=== PATIENT | male | born 1950 | race Caucasian/White ===

== ENCOUNTER 2023-05-07 12:42 | Outpatient (OUT) | payer OTHER, SELFPAY ==
[2023-05-07 14:03] LABS: Anion Gap 11.7; BUN Creatinine Ratio 16.1; Calcium 8.6 mg/dL (8.5-10.1); Carbon Dioxide 27.5 mmol/L (21.0-32.0); Chloride 105 mmol/L (98-107); Estimated GFR (African America >60 (>=60); Estimated GFR (Non-African Ame >60 (>=60); Glucose 104 mg/dL (74-106); Potassium 4.2 mmol/L (3.5-5.1); Sodium 140 mmol/L (136-145)
== END 2023-05-07 12:43 ==
PROVIDERS: PCP Internal Medicine; Visit Provider Nurse Practitioner Family
DX: I10 Essential (primary) hypertension (principal)
CPT/HCPCS: 36415; 80048

== ENCOUNTER 2024-01-29 10:37 | Outpatient (OUT) | payer OTHER, SELFPAY ==
--- NOTE | 2024-01-29 10:40 | US_ITS ---
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 TECHNIQUE: Duplex Doppler ultrasound analysis of carotid and vertebral arteries. . Bilateral carotid arterial duplex examination was performed using B-mode, color flow and spectral analysis. Carotid stenosis is reported according to validated velocity parameters, similar to NASCET criteria. FINDINGS: RIGHT CAROTID ARTERY Mild plaque Subclavian: PSV: 41.2 cm/s cm/s EDV: 5.1 cm/s cm/s CCA: Prox: PSV: 51.7 cm/s cm/s EDV: 11.1 cm/s cm/s Mid: PSV: 53.1 cm/s cm/s EDV: 11.8 cm/s cm/s Distal: PSV: 35.3 cm/s cm/s EDV: 12.5 cm/s cm/s BULB: PSV: 21.7 cm/s cm/s EDV: 4.6 cm/s cm/s ICA: Prox: PSV: 54.6 cm/s cm/s EDV: 25.8 cm/s cm/s Mid: PSV: 39.6 cm/s cm/s EDV: 17.5 cm/s cm/s Distal: PSV: 41.0 cm/s cm/s EDV: 18.9 cm/s cm/s ECA: PSV: 53.1 cm/s cm/s EDV: 9.0 cm/s cm/s VERTEBRAL: PSV: 28.2 cm/s cm/s EDV: 9.0 cm/s cm/s, antegrade ICA/CCA ratio: PSV: 1.5 EDV: 2.1 LEFT CAROTID ARTERY Mild Plaque Subclavian: PSV: 71.4 cm/s cm/s EDV: 0.0 cm/s CCA: Prox: PSV: 55.9 cm/s cm/s EDV: 18.2 cm/s Mid: PSV: 53.8 cm/s cm/s EDV: 18.2 cm/s Distal: PSV: 58.8 cm/s cm/s EDV: 19.6 cm/s BULB: PSV: 36.7 cm/s cm/s EDV: 9.7 cm/s ICA: Prox: PSV: 37.4 cm/s cm/s EDV: 17.5 cm/s Mid: PSV: 38.2 cm/s cm/s EDV: 17.5 cm/s Distal: PSV: 46.0 cm/s cm/s EDV: 19.6 cm/s ECA: PSV: 65.1 cm/s cm/s EDV: 9.2 cm/s VERTEBRAL: PSV: 26.7 cm/s cm/s EDV: 12.7 cm/s , antegrade ICA/CCA ratio: PSV: 0.8 EDV: 1.0 US/US carotid duplex BI IMPRESSION: 0-49% flow stenosis bilateral internal carotid arteries Spectral Doppler US Thresholds (Reference: Joe EG, et al. Radiology 2000; 214:247-252) Stenosis (%) PSV (cm/sec) VICA/VCCA 0-49 <150 <2.5 50-69 150-225 2.5-4.0 >70 >225 >4.0 Electronically authenticated by: TASIA MOORE Date: 01/29/2024 13:24
== END 2024-01-29 10:38 | disposition home or self-care (01) ==
LOC: US 10:37
PROVIDERS: PCP Internal Medicine; Visit Provider Internal Medicine
DX: H34.212 Partial retinal artery occlusion, left eye (principal); R09.89 Other specified symptoms and signs involving the circulatory and respiratory systems
CPT/HCPCS: 93880

== ENCOUNTER 2024-04-11 12:56 | Emergency (ER) | payer OTHER, SELFPAY ==
[2024-04-11 12:59] VITALS: BP 146/96; PULSE 78; TEMP 36.9; O2SAT 98; BMI 32.6
--- OUTSIDE RECORDS SUMMARY | 2024-04-11 13:10 | XMS_ITS | CCD ---
Author Organization [facility] Care Team Providers Care Sand Control Worker Name Role Phone VALERIO, DIANA Unavailable Unavailable VALERIO, DIANA Unavailable Unavailable VALERIO, DIANA Unavailable Unavailable UNKNOWN, PHYSICIAN Unavailable Unavailable ARRON, DR VALENCIA Primary Care Unavailable DIAB ., JOHNNY Admitting Unavailable DIAB ., JOHNNY Attending Unavailable NATHAN RUIZ Consulting Unavailable DIAB ., JOHNNY Consulting Unavailable GABRIELLA ZHANG Attending Unavailable FLO HORVATH Attending Unavailable JOHN VIDALES Referring Unavailable ERIBERTO THOMSON Attending Unavailable JOHN VIDALES Referring Unavailable FLO HORVATH Attending Unavailable FLO HORVATH Attending Unavailable JOHN VIDALES Referring Unavailable ERIK HELLER Attending Unavailable ERIK HELLER Attending Unavailable ERIK HELLER Attending Unavailable TROY FITZGERALD Attending Unavailable Problems Problem Classification Problem Date Documented Date Episodic/Chronic Cardiac dysrhythmias (3 sources) Unspecified atrial fibrillation; Translations: [Paroxysmal atrial fibrillation] Onset: 03-13-2023 Chronic Conduction disorders (7 sources) Presence of cardiac pacemaker; Translations: [Unspecified atrioventricular block] Onset: 12-26-2022 Chronic Coronary atherosclerosis and other heart disease (8 sources) Atherosclerotic heart disease of [place] coronary artery without angina pectoris; Translations: [Atherosclerotic heart disease of [place] coronary artery with other forms of angina pectoris] Onset: 12-24-2017 Chronic Coronary atherosclerosis and other heart disease (1 source) Presence of coronary angioplasty implant and graft; Translations: [PRESENCE COR ANGPLSTY IMPLANT AND GRAFT] Onset: 03-29-2023 Episodic Disorders of lipid metabolism (2 sources) Mixed hyperlipidemia; Translations: [Mixed hyperlipidemia] Onset: 12-26-2022 Chronic E Codes: Natural/environment (1 source) Exposure to other specified factors, initial encounter; Translations: [EXPOSURE OTHER SPEC FACTORS INITIAL] Onset: 03-29-2023 Episodic Essential hypertension (2 sources) Essential (primary) hypertension; Translations: [Essential (primary) hypertension] Onset: 12-26-2022 Chronic Other aftercare (1 source) 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; Translations: [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 USE ANTICOAGULANTS] Onset: 03-29-2023 Episodic Other connective tissue disease (1 source) Other muscle spasm; Translations: [OTHER MUSCLE SPASM] Onset: 03-29-2023 Episodic Other connective tissue disease (1 source) Arthrodesis status; Translations: [ARTHRODESIS STATUS] Onset: 03-29-2023 Episodic Screening and history of mental health and substance abuse codes (1 source) Personal history of nicotine dependence; Translations: [PERSONAL HISTORY OF NICOTINE DEPEND] Onset: 03-29-2023 Episodic Spondylosis; intervertebral disc disorders; other back problems (4 sources) Cervicalgia; Translations: [CERVICALGIA] Onset: 03-27-2023 Episodic Sprains and strains (1 source) Sprain of joints and ligaments of unspecified parts of neck, initial encounter; Translations: [SPRAIN JNT LIG UNS PARTS NECK INIT] Onset: 03-29-2023 Episodic Results Test Name Value Interpretation Reference Range Facility Office Visiton 08-20-2023 Follow-up visit [id number] Marilynn Valentine 1950 M Date Provider Department Center 08/20/2023 GABRIELLA GREENE [facility] No family history on file Level of Service:50999 [place] OFFICE/OUTPATIENT ESTABLISHED LOW MDM 20-29 MIN Normal [facility] Office Visiton 05-07-2023 Follow-up visit [id number] Marilynn Valentine 1950 M Date Provider Department Center 05/07/2023 FLO YOUSSEF [facility] No family history on file Level of Service:53864 [place] OFFICE/OUTPATIENT ESTABLISHED LOW MDM 20-29 MIN Reason for Visit and Comments: Atrial Fibrillation [80] Coronary Artery Disease [187] Hypertension [581622] Congestive Heart Failure [127] Normal [facility] Office Visiton 04-09-2023 Follow-up visit [id number] Marilynn Valentine 1950 M Date Provider Department Center 04/09/2023 FLO YOUSSEF [facility] No family history on file Level of Service:88080 [place] OFFICE/OUTPATIENT ESTABLISHED MOD MDM 30-39 MIN Reason for Visit and Comments: Hypertension [141320] Coronary Artery Disease [187] Atrial Fibrillation [80] Normal [facility] CT CSPINE WO CONon 3 CT CSPINE WO CON EXAMINATION: CT CSPINE WO CON CLINICAL INDICATION: Left-sided neck pain. TECHNIQUE: Axial CT images of the cervical spine were obtained without intravenous contrast administration. Reformatted images in coronal and sagittal planes were then acquired using the axial source data. Automated dose lowering techniques and/or adjustment according to patient size were utilized for this examination. COMPARISON: None at our institution at the time of this dictation. FINDINGS: Postsurgical changes visualized secondary to ACDF spanning the C4-C7 levels with anterior plate and screw fixation noted. There is no evidence for hardware fracture or loosening. There is solid osseous fusion noted along the C4-C7 levels. There is mild straightening of the normal cervical lordotic curvature. Vertebral body heights are preserved. The dens and atlantodens interval is intact. The ring of C1 is intact. The odontoid process is intact. No acute fractures are visualized. Posterior elements are intact. The prevertebral soft tissues appear unremarkable. There is grade 1 degenerative anterolisthesis at C7-T1 measuring 3.4 mm. The remainder of the spine alignment is maintained. Mild disc height loss visualized at C3-C4 and mild to moderate at C7-T1 and moderate at T1-T2. Calcified disc bulge noted at the C3-C4 level contributing to mild central canal narrowing. No evidence for high-grade central canal narrowing within the cervical spine. There is multilevel facet arthropathy visualized which is most significant along the left facet joints spanning the C2-C3 levels. Moderate to severe facet arthropathy visualized at the C7-T1 level bilaterally. Multilevel neuroforaminal narrowing secondary to uncovertebral and facet arthropathy visualized. Moderate left neuroforaminal narrowing at C2-C3. There is moderate left and severe right neuroforaminal narrowing at C4-C5. Moderate right neuroforaminal narrowing at C5-C6. Severe right and moderate left neuroforaminal narrowing at C6-C7. The imaged lung de la cruz show no acute pathology. IMPRESSION: 1. No acute fracture or traumatic malalignment of the cervical spine.. 2. Postsurgical changes secondary to ACDF spanning the C4-C7 levels with solid osseous fusion noted along the disc spaces with no evidence for hardware complication. 3. Calcified disc bulge noted at the C3-C4 level contributing to mild central canal narrowing. 4. Multilevel facet arthropathy most significant along the left facet joint spanning the C2-C3 level and along the C7-T1 level bilaterally. 5. Multilevel neuroforaminal narrowing most significant along the left neuroforamina at C2-C3, bilateral neuroforamina at C4-C5, right greater than left, bilateral neuroforamina at C6-C7, right greater than left. Electronically authenticated by: NATHAN RUIZ Date: 2023-03-27 05:44 [facility] 36on 03-15-2023 36 I spoke to patient. He had questions/concerns about taking Eliquis. Discussed his [id number] score of at least 3 (age, HTN, CAD) and his stroke risk. Discussed potential side effects. At this time benefit of taking medication outweighs potential side effects. He states understanding and plans to start taking Eliquis today. He will let us know if he has issues. He will continue to monitor his BP. [facility] 36 Patient is requesting you call him. I tried to take a message but he is asking to speak with you. [facility] Office Visiton 03-13-2023 Follow-up visit [id number] Marilynn Valentine 1950 M Date Provider Department Center 03/13/2023 ERIBERTO ROBINS [facility] No family history on file Level of Service:74101 [place] OFFICE/OUTPATIENT ESTABLISHED MOD MDM 30-39 MIN Reason for Visit and Comments: Hypertension [476693] Coronary Artery Disease [187] AV block [Other] [facility] Office Visiton 01-15-2023 Follow-up visit [id number] Marilynn Valentine 1950 M Date Provider Department Center 01/15/2023 166-FLO HORVATH [facility] No family history on file Level of Service:56729 [place] OFFICE/OUTPATIENT ESTABLISHED MOD MDM 30-39 MIN Reason for Visit and Comments: Hypertension [909703] [facility] CBC W/DIFFon 12-24-2017 ABS BASOPHILS 0.1 10*3/uL Normal 0.0-0.2 [facility] Comment on above: Performed By: #### 5 0103 ####[facility] ABS IMM GRANS 0.0 10*3/uL Normal 0.0-0.2 [facility] Comment on above: Performed By: #### 5 0103 ####[facility] Basophils Auto #/vol (Bld) 0.9 % Normal 0.0-1.0 [facility] Comment on above: Performed By: #### 5 0103 ####[facility] Eosinophils 0.3 10*3/uL Normal 0.0-0.5 The [facility] Comment on above: Performed By: #### 5 0103 ####[facility] Eosinophils/100 leukocytes 3.4 % Normal 0.0-6.0 [facility] Comment on above: Performed By: #### 5 0103 ####[facility] Erythrocyte distribution width Auto Ratio (RBC) 14.2 % Normal 11.5-15.0 [facility] Comment on above: Performed By: #### 5 0103 ####[facility] Erythrocytes (RBC) 5.79 10*6/uL High 4.20-5.70 [facility] Comment on above: Performed By: #### 5 3 ####[facility] Erythrocytes (RBC) 0 % Normal 0-0 [facility] Comment on above: Performed By: #### 5 0103 ####[facility]3000 [facility].[address] Hematocrit (HCT) 48.2 % Normal 39.0-50.0 [facility] Comment on above: Performed By: #### 5 3 ####[facility]3000 [facility].[address] Hemoglobin mass conc (Bld) 16.0 g/dL Normal 13.0-17.0 [facility] Comment on above: Performed By: #### 3 ####[facility] IMMATURE GRANS 0.1 % Normal 0.0-1.0 [facility] Comment on above: Performed By: #### 102 ####[address] Lymphocytes 2.0 10*3/uL Normal 1.2-4.0 The [facility] Comment on above: Performed By: #### 5 3 ####[place] [id number] Lymphocytes/100 leukocytes 26.6 % Normal 20.0-45.0 [facility] Comment on above: Performed By: #### 5 3 ####[facility] [facility].[address] MCH 27.6 pg Normal 27.0-33.0 [facility] Comment on above: Performed By: #### 5 3 ####[facility]3000 [facility].[address] MCHC mass conc (RBC) 33.2 g/dL Normal 32.0-35.0 [facility] Comment on above: Performed By: #### 5 3 ####[facility]3000 [facility] [place] [address], [facility] MCV 83.2 fL Normal 82.0-98.0 [facility] Comment on above: Performed By: #### 5 0103 ####[facility] [facility] [place] [address], [facility] Monocytes 0.7 10*3/uL Normal 0.1-1.0 [facility] Comment on above: Performed By: #### 5 0103 ####[facility] [facility] [place] [address], [facility] MONOS 9.7 % Normal 5.0-12.0 [facility] Comment on above: Performed By: #### 5 0103 ####[facility] Neutrophils 4.4 10*3/uL Normal 1.6-7.6 The [facility] Comment on above: Performed By: #### 5 0103 ####[facility] [facility].[address] Neutrophils/100 leukocytes 59.3 % Normal 40.0-72.0 [facility] Comment on above: Performed By: #### 5 0103 ####[facility] [facility] [place] [address], [facility] PLAT CNT 238 10*3/uL Normal 150-400 [facility] Comment on above: Performed By: #### 5 0103 ####[facility] [facility].[address] WBC (Leukocytes) 7.4 10*3/uL Normal 4.0-10.6 [facility] Comment on above: Performed By: #### 5 0103 ####[facility]3000 [place], [place] [id number] [place] [address] COMP METABOLIC PANELon 12-24 Alanine aminotransferase (ALT) 30 U/L Normal 7-52 [facility] Comment on above: Performed By: #### 0 012, 83182 ####[facility] [place] [address], [facility] Albumin 4.3 g/dL Normal 3.5-5.7 [facility] Comment on above: Performed By: #### 0 0121, 82042 ####[facility] [place] [address], [facility] ALKALINE PHOSPH 67 IU/L Normal 34-104 The [facility] Comment on above: Performed By: #### 0 0121, 16683 ####[facility] Aspartate aminotransferase (AST) 23 U/L Normal 13-39 [facility] Comment on above: Performed By: #### 0 012, 70055 ####[facility] Bilirubin (total) 0.3 mg/dL Normal 0.3-1.0 [facility] Comment on above: Performed By: #### 0 012, 67443 ####[place] [address] [place] [address], [facility] Calcium 9.2 mg/dL Normal 8.6-10.3 [facility] Comment on above: Performed By: #### 0 0121, 43624 ####[facility] [place] [address], [facility] Chloride 109 mmol/L High 98-107 [facility] Comment on above: Performed By: #### 0 0121, 24482 ####[facility] [place] [address], [facility] CO2 25 mmol/L Normal 21-31 [facility] Comment on above: Performed By: #### 0 0121, 83496 ####[facility] [place] [address], [facility] Creatinine 0.94 mg/dL Normal 0.70-1.30 [facility] Comment on above: Performed By: #### 0 0121, 66234 ####[facility] [place] [address], [facility] eGFR (black) mL/min/{1.73_m2} Normal >60 The [facility] Comment on above: Performed By: #### 0 012, 53776 ####[facility] eGFR (non-black) mL/min/{1.73_m2} Normal >60 [facility] Comment on above: Performed By: #### 0 012, 47408 ####[facility] Glucose mass conc 100 mg/dL Normal 70-100 [facility] Comment on above: Performed By: #### 0 012, 25872 ####[place] [address] Potassium molar conc 4.2 mmol/L Normal 3.5-5.1 [facility] Comment on above: Performed By: #### 0 012, 18097 ####[facility] Protein 7.0 g/dL Normal 6.0-8.3 [facility] Comment on above: Performed By: #### 0 012, 98927 ####[facility] Sodium 140 mmol/L Normal 136-145 [facility] Comment on above: Performed By: #### 0 012, 94739 ####[facility] [facility] [place] [address], [facility] Urea nitrogen 18 mg/dL Normal 7-25 The [facility] Comment on above: Performed By: #### 0 0121, 10772 ####[facility] [facility] [place] [address], [facility] LIPID PROFILEon 12-24-2017 Cholesterol 120 mg/dL Normal 120-200 The [facility] Comment on above: Result Comment: CHOL ESTEROL REFERENCE RANGE:20 YEARS AND OLDER CARDIOVASCULAR RISKLess than 200 mg/dl Low [id number] to 239 mg/dl Borderline Cgzr472 mg/dl and greater High Risk Performed By: #### 0 0121, 67410 ####[place] [address] [facility].[address] Cholesterol to HDL Ratio 3.8 {ratio} Normal .0-4.5 [facility] Comment on above: Performed By: #### 0 0121, 34427 ####[facility] [facility].[address] HDL Cholesterol 32 mg/dL Normal 23-92 The [facility] Comment on above: Result Comment: Slig ht variation in normal range could be due to gender and/or age.HDL CHOLESTEROL REFERENCE RANGE:20 years and older Cardiovascular Risk> or =60 mg/dL Exnqeqhyg95 TO 59 mg/dL Low Risk<40 mg/dL High Risk Performed By: #### 0 0121, 87688 ####[facility] [facility].[address] LDL Cholesterol 65 mg/dL Normal 0-130 The [facility] Comment on above: Result Comment: LDL IS A CALCULATIONLDL IS ONLY VALID IF THE TRIG IS LESS THAN 400. Performed By: #### 0 0121, 20342 ####[facility] [facility] [place] [address], [facility] NON-HDL CHOLESTEROL 88 mg/dL Normal [facility] Comment on above: Performed By: #### 0 0121, 04351 ####[facility] [place] [address], [facility] Triglyceride 113 mg/dL Normal 40-149 The [facility] Comment on above: Result Comment: TRIG LYCERIDE REFERENCE RANGE:20 YEARS AND OLDER CARDIOVASCULAR RISKLESS THAN 150 mg/dl LOW [id number] TO 199 mg/dl BORDERLINE HLMF295 mg/dl AND GREATER HIGH RISK Performed By: #### 0 0121, 36695 ####[facility] [place] [address], [facility] VLDL CHOL 23 mg/dL Normal 0-40 [facility] Comment on above: Performed By: #### 0 0121, 05527 ####[facility] [facility].[address] Encounters Encounter Date Encounter Type Care Provider Facility Start: 04-02-2024 End: 04-02-2024 ambulatory TROY FITZGERALD Not Available Start: 02-26-2024 End: 02-26-2024 ambulatory ERIK HELLER Not Available Start: 02-12-2024 End: 02-12-2024 ambulatory ERIK HELLER Not Available Start: 01-22-2024 End: 01-22-2024 ambulatory ERIK HELLER Not Available Start: 01-07-2024 End: 01-07-2024 ambulatory [facility] Start: 08-20-2023 End: 08-20-2023 ambulatory [facility] Start: 07-22-2023 End: 07-22-2023 ambulatory [facility] Start: 05-07-2023 End: 05-07-2023 ambulatory [facility] Start: 04-09-2023 End: 04-09-2023 ambulatory [facility] Start: 03-27-2023 End: 03-27-[address] ERIK HELLER Facility: Start: 03-13-2023 End: 03-13-2023 ambulatory ERIBERTO BARAZI [facility] Start: 02-06-2023 End: 02-06-2023 ambulatory JOHN VIDALES [facility] Start: 01-15-2023 End: 01-15-2023 ambulatory FLO HORVATH [facility] Start: 12-24-2017 End: 12-25-2017 Ambulatory DIANA VALERIO Facility:[facility] Payers Date Payer Category Payer Unknown [id number] 1950 Unknown [id number] 2.16.84 [id number] 1950 Unknown [id number] 2.16.84 [id number] 1950 Unknown [id number] 2.16.84 [id number] 1950 Unknown [id number] 2.16.84 [id number] 1950 Unknown [id number] 2.16.84 [id number] Medicare [id number] Clinical Notes 01-15-2023 to 08-20-2023 Note Date & Type Note Facility 08-20-2023 Note [facility] Cardiology Clinic Note Chief Complaint: Patient here for follow up hypertension. Says his BP continues to run high at home. Denies chest pain, SOB, and bleeding on Eliquis. C/o tingling sensation to the left side of his head/neck. HPI: Marilynn Valentine is a 73 y.o. male PMHx: HTN, HLD, CAD s/p PCI RCA 2015, AV block s/p PPM ([employer]) 03/2016: Patient presented to [facility] with unstable angina and was transferred to [facility]. I performed cardiac cath and found 100% LAD occlusion and 90% distal RCA stenosis. I treated the RCA stenosis with PCI with a drug-eluting stent. Stress test in 05/2016 with apical ischemia. He has chronic total occlusion of the LAD, however he reports only mild symptom burden. He is doing pretty well actually. Recent right knee replacement surgery. recovering well. planning for left knee replacement in 07/2017. No chest pain or SOB. 11/2017: Today, he is doing ok. He had both knees replaced in 2016. He has mild SOB. He can walk 1/4 mile and then would stop due to fatigue and SOB. He is taking Aleve once a day. We discussed risk of GI bleeding. 12/17/2019: presents for preop visit. he is having problems with lumbar spine and foot drop on the right foot. he was seen by Dr. Wynn and recommend for spine surgery with general anesthesia. no chest pain, no SOB. 08/20/2023: Doing well. Continues to have back problems. Pertinently, blood pressure at home has been in the 130s over 65-85 diastolic. He always has elevated blood pressure readings in his physician's office. Cardiology ROS: Review of Systems Musculoskeletal: Positive for arthritis, back pain and joint pain. All other systems reviewed and are negative. Past Medical History He has a past medical history of Abnormal ECG, Arrhythmia, Atrial fibrillation (CMS/HCC), AV block, CAD (coronary artery disease), Hyperlipidemia, Hypertension, and Pacemaker. Surgical History He has a past surgical history that includes Cardiac catheterization; Total knee arthroplasty (Left, 07/26/2017); Total knee arthroplasty (Right, 04/03/2017); Insert / replace / remove pacemaker (10/28/2015); and Neck surgery (11/25/2013). Social History He reports that he has never smoked. He has never used smokeless tobacco. He reports that he does not drink alcohol and does not use drugs. Family History No family history on file. Allergies Patient has no known allergies. Medications Current Outpatient Medications: apixaban (Eliquis) 5 mg tablet, Take 1 tablet (5 mg) by mouth in the morning and at bedtime., Disp: 180 tablet, Rfl: 3 aspirin 81 mg EC tablet, Take 81 mg by mouth in the morning., Disp: , Rfl: atorvastatin (Lipitor) 80 mg tablet, atorvastatin 80 mg tablet, Disp: , Rfl: carvedilol (Coreg) 25 mg tablet, Take 1 tablet (25 mg) by mouth with breakfast and with evening meal., Disp: 180 tablet, Rfl: 3 coenzyme Q-10 100 mg capsule, 1 capsule in the morning., Disp: , Rfl: gabapentin (Neurontin) 800 mg tablet, gabapentin 800 mg tablet, Disp: , Rfl: isosorbide mononitrate ER (Imdur) 60 mg 24 hr tablet, isosorbide mononitrate ER 60 mg tablet,extended release 24 hr, Disp: , Rfl: lisinopril 10 mg tablet, Take 1 tablet (10 mg) by mouth in the morning., Disp: 90 tablet, Rfl: 3 Last Recorded Vitals BP (!) 173/122 (BP Location: Left arm, Patient Position: Sitting) Pulse 75 Ht 1.753 m (5' 9 ) Wt 97.5 kg (215 lb) SpO2 97% BMI 31.75 kg/m??? Physical Examination: GENERAL: alert and oriented x3, well developed, in no acute distress. HEAD: atraumatic, normocephalic. EYES: KATEY, EOMI. NECK: trachea midline, no JVD present, no carotid bruits present. CARDIAC: S1, S2 present. RRR. No murmur, rubs, or gallops. RESPIRATORY: CTAB, no increased effort of breathing, no rales, rhonchi, or wheezing. ABDOMEN: soft, nontender, nondistended. EXTREMITIES: no lower extremity edema, peripheral pulses are 2+ bilaterally. No rash/skin discoloration present. NEURO: strength/sensation equal and symmetric in bilateral upper and lower extremities. PSYCH: appropriate mood, affect, and judgement. Investigations: Labs 12/31/2022 Cr 1.0, BUN 18, EGFR 80, K 4.9, AST 16, ALT 16 Chol 121, HDL 36, trig 112, LDL 65 Hgb 16, plt 226 Lipids 2018 CHOLESTEROL 120 TRIGLYCERIDES 113 HDL CHOLESTEROL 32 LDL CHOLESTEROL 65 mg/dL Serum creatinine 0.87 05/07/2023 Cardiovascular Laboratory Report (2016 - Dr. Valerio) CLINICAL PRESENTATION: Marilynn Valentine is a 66-year-old male with hypertension and hyperlipidemia who presents with unstable angina. He had a negative stress test few months ago but due to ongoing symptoms consistent with unstable angina, he was referred for cardiac catheterization. FINAL IMPRESSION: 1. Severe two vessel coronary artery disease with 100% occluded mid left anterior descending (CAUSTIC PREPARER) and 90% stenosis of the distal right coronary artery. 2. Successful percutaneous coronary intervention of th (more content not included)... [facility] 05-07-2023 Note Cardiovascular Medic ine [facility] SUBJECTIVE Chief Complaint Patient presents with Atrial Fibrillation Coronary Artery Disease Hypertension Congestive Heart Failure Marilynn Valentine is a 73 y.o. male here for follow-up. Atrial Fibrillation Symptoms are negative for chest pain, palpitations and syncope. Past medical history includes atrial fibrillation, CAD and CHF. Coronary Artery Disease Pertinent negatives include no chest pain, leg swelling or palpitations. His past medical history is significant for CHF. Hypertension Pertinent negatives include no chest pain, orthopnea, palpitations or PND. Congestive Heart Failure Pertinent negatives include no chest pain, near-syncope or palpitations. His past medical history is significant for CAD. 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 His BP remained uncontrolled as well and his carvedilol was increased. He denies any changes since last seen. No bleeding issues since starting Eliquis. BP at home has been running 140s/90s. He denies any CP, dyspnea, orthopnea, PND, LE edema, dizziness/LH, palpitations, bleeding issues, headaches, neuro sx's. Prior HPI per Dr. Valerio 03/2016: Patient presented to [facility] with unstable angina and was transferred to [facility]. I performed cardiac cath and found 100% LAD occlusion and 90% distal RCA stenosis. I treated the RCA stenosis with PCI with a drug-eluting stent. Stress test in 05/2016 with apical ischemia. He has chronic total occlusion of the LAD, however he reports only mild symptom burden. He is doing pretty well actually. Recent right knee replacement surgery. recovering well. planning for left knee replacement in 07/2017. No chest pain or SOB. 11/2017: Today, he is doing ok. He had both knees replaced in 2016. He has mild SOB. He can walk 1/4 mile and then would stop due to fatigue and SOB. He is taking Aleve once a day. We discussed risk of GI bleeding. 12/17/2019: presents for preop visit. he is having problems with lumbar spine and foot drop on the right foot. he was seen by Dr. Wynn and recommend for spine surgery with general anesthesia. no chest pain, no SOB. Patient Active Problem List Diagnosis AV heart block Cardiac pacemaker in situ Coronary atherosclerosis Essential hypertension Hyperlipidemia Osteoarthritis of right knee S/P cardiac pacemaker procedure Syncope PAF (paroxysmal atrial fibrillation) (CMS/HCC) Past Medical History: Diagnosis Date Abnormal ECG Arrhythmia Atrial fibrillation (CMS/HCC) AV block CAD (coronary artery disease) Hyperlipidemia Hypertension Pacemaker No family history on file. Social History Tobacco Use Smoking status: Never Smokeless tobacco: Never Substance Use Topics Alcohol use: Never Drug use: Never No Known Allergies Review of Systems Cardiovascular: Negative for chest pain, dyspnea on exertion, irregular heartbeat, leg swelling, near-syncope, orthopnea, palpitations, paroxysmal nocturnal dyspnea and syncope. Neurological: Right drop foot, brace in place; ambulates with cane OBJECTIVE Visit Vitals BP (!) 163/105 (BP Location: Left arm, Patient Position: Sitting) Pulse 61 Ht 1.753 m (5' 9 ) Wt 100 kg (221 lb) SpO2 97% BMI 32.64 kg/m??? Smoking Status Never BSA 2.21 m??? Medications: Current Outpatient Medications: apixaban (Eliquis) 5 mg tablet, Take 1 tablet (5 mg) by mouth in the morning and at bedtime., Disp: 60 tablet, Rfl: 3 aspirin 81 mg EC tablet, Take 81 mg by mouth in the morning., Disp: , Rfl: atorvastatin (Lipitor) 80 mg tablet, atorvastatin 80 mg tablet, Disp: , Rfl: carvedilol (Coreg) 25 mg tablet, Take 1 tablet (25 mg) by mouth with breakfast and with evening meal., Disp: 180 tablet, Rfl: 3 coenzyme Q-10 100 mg capsule, 1 capsule in the morning., Disp: , Rfl: gabapentin (Neurontin) 800 mg tablet, gabapentin 800 mg tablet, Disp: , Rfl: isosorbide mononitrate ER (Imdur) 60 mg 24 hr tablet, isosorbide mononitrate ER 60 mg tablet,extended release 24 hr, Disp: , Rfl: lisinopril 10 mg tablet, Take 1 tablet (10 mg) by mouth in the morning., Disp: 90 tablet, Rfl: 3 Physical Exam Constitutional: Appearance: Normal appearance. He is normal weight. HENT: Head: Normocephalic and atraumatic. Right Ear: External ear normal. Left Ear: External ear normal. Eyes: Extraocular Movements: Extraocular movements intact. Pupils: Pupils are equal, round, and reactive to light. Neck: Vascular: No carotid bruit. Cardiovascular: Rate and Rhythm: Normal rate and regular rhythm. Pulses: Normal pulses. Heart sounds: Normal heart sounds. Pulmonary: Effort: Pulmonary effort is normal. Breath sounds: Normal breath sounds. Abdominal: (more content not included)... [facility] 05-07-2023 Note Patient here for 1 m o follow up hypertension and lisinopril increase. BMP was drawn this afternoon before apt. Still denies chest pain, SOB, palpitations, and bleeding on Eliquis. Review of Systems Musculoskeletal: Positive for arthritis, back pain and joint pain. All other systems reviewed and are negative. [facility] 04-09-2023 Note Patient here for 1 m o follow up hypertension. Says BP at home is usually between 130-150 systolic. Denies chest pain, SOB, palpitations, and bleeding on Eliquis. Review of Systems Musculoskeletal: Positive for arthritis, back pain and joint pain. All other systems reviewed and are negative. [facility] 04-09-2023 Note Cardiovascular Medic [facility] SUBJECTIVE Chief Complaint Patient presents with Hypertension Coronary Artery Disease Atrial Fibrillation Marilynn Valentine is a 73 y.o. male here for follow-up. HPI PMHx: HTN, HLD, CAD s/p PCI RCA 2016, AV block s/p PPM ([employer]tr[employer]) At his last visit with VASILIY Thomson, his device interrogation showed he had episodes of paroxysmal a.fib and he was started on Eliquis. His BP remained uncontrolled as well and his carvedilol was increased. He denies any changes since last seen. No bleeding issues since starting Eliquis. BP at home has been running 140s/90s. He denies any CP, dyspnea, orthopnea, PND, LE edema, dizziness/LH, palpitations, bleeding issues, headaches, neuro sx's. Prior HPI per Dr. Valerio 03/2016: Patient presented to [facility] with unstable angina and was transferred to [facility]. I performed cardiac cath and found 100% LAD occlusion and 90% distal RCA stenosis. I treated the RCA stenosis with PCI with a drug-eluting stent. Stress test in 05/2016 with apical ischemia. He has chronic total occlusion of the LAD, however he reports only mild symptom burden. He is doing pretty well actually. Recent right knee replacement surgery. recovering well. planning for left knee replacement in 07/2017. No chest pain or SOB. 11/2017: Today, he is doing ok. He had both knees replaced in 2016. He has mild SOB. He can walk 1/4 mile and then would stop due to fatigue and SOB. He is taking Aleve once a day. We discussed risk of GI bleeding. 12/17/2019: presents for preop visit. he is having problems with lumbar spine and foot drop on the right foot. he was seen by Dr. Wynn and recommend for spine surgery with general anesthesia. no chest pain, no SOB. Patient Active Problem List Diagnosis AV heart block Cardiac pacemaker in situ Coronary atherosclerosis Essential hypertension Hyperlipidemia Osteoarthritis of right knee S/P cardiac pacemaker procedure Syncope PAF (paroxysmal atrial fibrillation) ([facility]) Past Medical History: Diagnosis Date CAD (coronary artery disease) Hyperlipidemia Hypertension Pacemaker No family history on file. Social History Tobacco Use Smoking status: Never Smokeless tobacco: Never Substance Use Topics Alcohol use: Never Drug use: Never No Known Allergies Review of Systems Cardiovascular: Negative for chest pain, dyspnea on exertion, irregular heartbeat, leg swelling, near-syncope, orthopnea, palpitations, paroxysmal nocturnal dyspnea and syncope. Neurological: Right drop foot, brace in place; ambulates with cane OBJECTIVE Visit Vitals BP (!) 152/99 (BP Location: Left arm, Patient Position: Sitting) Pulse 83 Ht 1.753 m (5' 9 ) Wt 101 kg (223 lb) SpO2 95% BMI 32.93 kg/m??? Smoking Status Never BSA 2.22 m??? Medications: Current Outpatient Medications: apixaban (Eliquis) 5 mg tablet, Take 1 tablet (5 mg) by mouth in the morning and at bedtime., Disp: 60 tablet, Rfl: 3 aspirin 81 mg EC tablet, Take 81 mg by mouth in the morning., Disp: , Rfl: atorvastatin (Lipitor) 80 mg tablet, atorvastatin 80 mg tablet, Disp: , Rfl: coenzyme Q-10 100 mg capsule, 1 capsule in the morning., Disp: , Rfl: gabapentin (Neurontin) 800 mg tablet, gabapentin 800 mg tablet, Disp: , Rfl: isosorbide mononitrate ER (Imdur) 60 mg 24 hr tablet, isosorbide mononitrate ER 60 mg tablet,extended release 24 hr, Disp: , Rfl: carvedilol (Coreg) 25 mg tablet, Take 1 tablet (25 mg) by mouth with breakfast and with evening meal., Disp: 180 tablet, Rfl: 3 lisinopril 10 mg tablet, Take 1 tablet (10 mg) by mouth in the morning., Disp: 90 tablet, Rfl: 3 Physical Exam Constitutional: Appearance: Normal appearance. He is normal weight. HENT: Head: Normocephalic and atraumatic. Right Ear: External ear normal. Left Ear: External ear normal. Eyes: Extraocular Movements: Extraocular movements intact. Pupils: Pupils are equal, round, and reactive to light. Neck: Vascular: No carotid bruit. Cardiovascular: Rate and Rhythm: Normal rate and regular rhythm. Pulses: Normal pulses. Heart sounds: Normal heart sounds. Pulmonary: Effort: Pulmonary effort is normal. Breath sounds: Normal breath sounds. Abdominal: General: Bowel sounds are normal. Palpations: Abdomen is soft. Musculoskeletal: General: Normal range of motion. Cervical back: Neck supple. Right lower leg: No edema. Left lower leg: No edema. Skin: General: Skin is warm and dry. Neurological: Mental Status: He is alert and oriented to person, place, and time. Comments: Right foot drop with brace in place; ambulates with a cane Psychiatric: Mood and Affect: Mood normal. Behavior: Behavior normal. Thought Content: Thought content normal. Judgment: Judgment normal. Labs/Testing/Procedures: Labs 01/01/2023 Cr 1.0, BUN 18, EGFR 80, K 4.9, AST 16, ALT 16 (more content not included)... [facility] 03-17-2023 Note - [id number] at le ast 2 for age and hypertension -Start Eliquis 5 mg twice daily -Discussed signs and symptoms to watch for related to concerns for intolerance of DOAC [facility] 03-17-2023 Note - He has been having hypertension issues and has been having his medications adjusted. Discussed with him doubling his Coreg and following up for hypertension in 1 month -Increase Coreg to 25 mg twice daily, continue Imdur 60 mg, lisinopril 5 mg [facility] 03-17-2023 Note - We will continue t o monitor device for progressing A-fib [facility] 03-17-2023 Note - Stable, no anginal symptoms, continue medication [facility] 03-13-2023 Note Patient here for 2 m o follow up per Joi Horvath. Dr. Vidales also requested EP consult after his device interrogation on 02/06/2023. In Dec 2022, Joi increased his carvedilol to 12.5mg bid and restarted lisinopril. He doesn't think the changes made a huge difference. Said his BP before he came today was 150/92. Still denies chest pain and SOB. Review of Systems Musculoskeletal: Positive for arthritis, back pain and joint pain. All other systems reviewed and are negative. [facility] 03-13-2023 Note [facility] Consult Note Reason for visit: Referred to EP due to having A-fib found on device HPI: Marilynn Valentine is a 72 y.o. year old with past medical history hypertension, CAD, PPM [employer]tr[employer] for AV block He is found to have less than 1% A-fib event on his device. He has had 7 episodes of A-fib since June 2020 with the longest being 52 seconds. He has less than 0.1% time in A-fib. I discussed with him starting anticoagulation for the benefit of stroke prevention. [id number] at least 2 for age and hypertension, 3 if you consider CAD Previous 12/2022 HPI PMHx: HTN, HLD, CAD s/p PCI RCA 2015, AV block s/p PPM ([employer]tr[employer]) He denies any changes since last seen. BP at home has been running 150/100s since we switched him to coreg. He denies any CP, dyspnea, orthopnea, PND, LE edema, dizziness/LH, palpitations, bleeding issues, headaches, neuro sx's. Prior HPI per Dr. Valerio 03/2016: Patient presented to [facility] with unstable angina and was transferred to [facility]. I performed cardiac cath and found 100% LAD occlusion and 90% distal RCA stenosis. I treated the RCA stenosis with PCI with a drug-eluting stent. Stress test in 05/2016 with apical ischemia. He has chronic total occlusion of the LAD, however he reports only mild symptom burden. He is doing pretty well actually. Recent right knee replacement surgery. recovering well. planning for left knee replacement in 07/2017. No chest pain or SOB. 11/2017: Today, he is doing ok. He had both knees replaced in 2017. He has mild SOB. He can walk 1/4 mile and then would stop due to fatigue and SOB. He is taking Aleve once a day. We discussed risk of GI bleeding. 12/17/2019: presents for preop visit. he is having problems with lumbar spine and foot drop on the right foot. he was seen by Dr. Wynn and recommend for spine surgery with general anesthesia. no chest pain, no SOB. PMH: Past Medical History: Diagnosis Date CAD (coronary artery disease) Hyperlipidemia Hypertension Pacemaker PSH: Past Surgical History: Procedure Laterality Date CARDIAC CATHETERIZATION INSERT / REPLACE / REMOVE PACEMAKER 10/28/2015 NECK SURGERY 11/25/2013 TOTAL KNEE ARTHROPLASTY Left 07/26/2017 TOTAL KNEE ARTHROPLASTY Right 04/03/2017 SH: Social Determinants of Health Tobacco Use: Low Risk Smoking Tobacco Use: Never Smokeless Tobacco Use: Never Passive Exposure: Not on file Alcohol Use: Not on file Financial Resource Strain: Not on file Food Insecurity: Not on file Transportation Needs: Not on file Physical Activity: Not on file Stress: Not on file Social Connections: Not on file Intimate Partner Violence: Not on file Depression: Not on file Housing Stability: Not on file Allergies: No Known Allergies Weight: 102kg Visit Vitals BP (!) 161/109 (BP Location: Left arm, Patient Position: Sitting) Pulse 75 Ht 1.753 m (5' 9 ) Wt 102 kg (224 lb) SpO2 96% BMI 33.08 kg/m??? Smoking Status Never BSA 2.23 m??? Meds: Current Outpatient Medications on File Prior to Visit Medication Sig Dispense Refill aspirin 81 mg EC tablet Take 81 mg by mouth in the morning. atorvastatin (Lipitor) 80 mg tablet atorvastatin 80 mg tablet carvedilol (Coreg) 12.5 mg tablet Take 1 tablet (12.5 mg) by mouth with breakfast and with evening meal. 60 tablet 11 coenzyme Q-10 100 mg capsule 1 capsule in the morning. gabapentin (Neurontin) 800 mg tablet gabapentin 800 mg tablet isosorbide mononitrate ER (Imdur) 60 mg 24 hr tablet isosorbide mononitrate ER 60 mg tablet,extended release 24 hr lisinopril 5 mg tablet Take 1 tablet (5 mg) by mouth in the morning. 30 tablet 0 No current facility-administered medications on file prior to visit. ROS: Cardio Basic Cardiovascular Symptoms: no lightheadedness, no leg edema, no syncope, no orthopnea, no PND, no claudication, Constitutional Constitutional: no fever, no night sweats, no significant weight gain, no significant weight loss, no exercise intolerance Eyes Eyes: no dry eyes, no irritation, no vision change ENMT Ears: no difficulty hearing, no ear pain Nose: no frequent nosebleeds, Mouth/Throat: no sore throat, no bleeding gums, no snoring, no dry mouth, no mouth ulcers, no oral abnormalities, no teeth problems Respiratory Respiratory: no cough, no wheezing, no coughing up blood, no sleep apnea Musculoskeletal Musculoskeletal: no muscle aches, no muscle weakness, joint pain+, no back pain, no swelling in the extremities Integumentary Skin no rash, no ulcer, no varicosities, no discoloration, no pruritus Neurologic Neurologic: no loss of consciousness, no weakness, no numbness, no seizures, no dizziness, no headaches Psychiatric Psych: no depression, feeling safe in relationship, no alcohol abuse, Hematologic/Lymphatic Hematol (more content not included)... [facility] 01-15-2023 Note Patient here for 1 m o follow up med change. His metoprolol was switched to carvedilol at last apt on 12/26/2022. Says he is not taking lisinopril, and he only takes it when he feels bad . Says he hasn't taken it in a few years. Denies chest pain and SOB. Review of Systems Musculoskeletal: Positive for arthritis, back pain and joint pain. All other systems reviewed and are negative. [facility] 01-15-2023 Note Cardiovascular Medic ine [facility] SUBJECTIVE Chief Complaint Patient presents with Hypertension Marilynn Valentine is a 72 y.o. male here for follow-up. HPI PMHx: HTN, HLD, CAD s/p PCI RCA 2015, AV block s/p PPM ([employer]) He denies any changes since last seen. BP at home has been running 150/100s since we switched him to coreg. He denies any CP, dyspnea, orthopnea, PND, LE edema, dizziness/LH, palpitations, bleeding issues, headaches, neuro sx's. Prior HPI per Dr. Valerio 03/2016: Patient presented to [facility] with unstable angina and was transferred to [facility]. I performed cardiac cath and found 100% LAD occlusion and 90% distal RCA stenosis. I treated the RCA stenosis with PCI with a drug-eluting stent. Stress test in 05/2016 with apical ischemia. He has chronic total occlusion of the LAD, however he reports only mild symptom burden. He is doing pretty well actually. Recent right knee replacement surgery. recovering well. planning for left knee replacement in 07/2017. No chest pain or SOB. 11/2017: Today, he is doing ok. He had both knees replaced in 2016. He has mild SOB. He can walk 1/4 mile and then would stop due to fatigue and SOB. He is taking Aleve once a day. We discussed risk of GI bleeding. 12/17/2019: presents for preop visit. he is having problems with lumbar spine and foot drop on the right foot. he was seen by Dr. Wynn and recommend for spine surgery with general anesthesia. no chest pain, no SOB. Patient Active Problem List Diagnosis AV heart block Cardiac pacemaker in situ Coronary atherosclerosis Essential hypertension Hyperlipidemia Osteoarthritis of right knee S/P cardiac pacemaker procedure Syncope Past Medical History: Diagnosis Date CAD (coronary artery disease) Hyperlipidemia Hypertension Pacemaker No family history on file. Social History Tobacco Use Smoking status: Never Smokeless tobacco: Never Substance Use Topics Alcohol use: Never Drug use: Never No Known Allergies Review of Systems Cardiovascular: Negative for chest pain, dyspnea on exertion, irregular heartbeat, leg swelling, near-syncope, orthopnea, palpitations, paroxysmal nocturnal dyspnea and syncope. Neurological: Right drop foot, brace in place; ambulates with cane OBJECTIVE Visit Vitals BP (!) 179/121 (BP Location: Left arm, Patient Position: Sitting) Pulse 83 Ht 1.753 m (5' 9 ) Wt 101 kg (222 lb) SpO2 96% BMI 32.78 kg/m??? Smoking Status Never BSA 2.22 m??? Medications: Current Outpatient Medications: aspirin 81 mg EC tablet, Take 81 mg by mouth in the morning., Disp: , Rfl: atorvastatin (Lipitor) 80 mg tablet, atorvastatin 80 mg tablet, Disp: , Rfl: coenzyme Q-10 100 mg capsule, 1 capsule in the morning., Disp: , Rfl: gabapentin (Neurontin) 800 mg tablet, gabapentin 800 mg tablet, Disp: , Rfl: isosorbide mononitrate ER (Imdur) 60 mg 24 hr tablet, isosorbide mononitrate ER 60 mg tablet,extended release 24 hr, Disp: , Rfl: carvedilol (Coreg) 12.5 mg tablet, Take 1 tablet (12.5 mg) by mouth with breakfast and with evening meal., Disp: 60 tablet, Rfl: 11 lisinopril 5 mg tablet, Take 1 tablet (5 mg) by mouth in the morning., Disp: 30 tablet, Rfl: 0 Physical Exam Constitutional: Appearance: Normal appearance. He is normal weight. HENT: Head: Normocephalic and atraumatic. Right Ear: External ear normal. Left Ear: External ear normal. Eyes: Extraocular Movements: Extraocular movements intact. Pupils: Pupils are equal, round, and reactive to light. Neck: Vascular: No carotid bruit. Cardiovascular: Rate and Rhythm: Normal rate and regular rhythm. Pulses: Normal pulses. Heart sounds: Normal heart sounds. Pulmonary: Effort: Pulmonary effort is normal. Breath sounds: Normal breath sounds. Abdominal: General: Bowel sounds are normal. Palpations: Abdomen is soft. Musculoskeletal: General: Normal range of motion. Cervical back: Neck supple. Right lower leg: No edema. Left lower leg: No edema. Skin: General: Skin is warm and dry. Neurological: Mental Status: He is alert and oriented to person, place, and time. Comments: Right foot drop with brace in place; ambulates with a cane Psychiatric: Mood and Affect: Mood normal. Behavior: Behavior normal. Thought Content: Thought content normal. Judgment: Judgment normal. Labs/Testing/Procedures: Labs 01/01/2023 Cr 1, BUN 18, EGFR 80, K 4.9, AST 16, ALT 16 Lipids 2018 CHOLESTEROL 120 TRIGLYCERIDES 113 HDL CHOLESTEROL 32 LDL CHOLESTEROL 65 mg/dL Cardiovascular Laboratory Report (2016 - Dr. Valerio) CLINICAL PRESENTATION: Marilynn Valentine is a 66-year-old male with hypertension and hyperlipidemia who presents with unstable angina. He had a negative stress test few months ago but due to ongoing symptoms consistent with unstable angina, he was referred for cardiac catheterization. FI (more content not included)... [facility] Summary Purpose Family History No Family History Records FoundNo Family History Records FoundNo Family History Records FoundNo Family History Records Found Advance Directives No Advanced Directives Records FoundNo Advanced Directives Records FoundNo Advanced Directives Records FoundNo Advanced Directives Records Found Additional Source Comments (unrecognized sect ion and content) No Status Records FoundNo Status Records FoundNo Status Records FoundNo Status Records Found INFORMATION SOURCE (unrecogn ized section and content) DATE CREATED AUTHOR 05/19/2018 [facility] DATE CREATED AUTHOR AUTHOR'S ORGANIZ ATION 03/30/2023 [facility] DATE CREATED AUTHOR AUTHOR'S ORGANIZ ATION 01/08/2024 [facility] DATE CREATED AUTHOR AUTHOR'S ORGANIZ ATION 04/04/2024 [facility] EPIC FOR RECORDS PERTAINING TO PATIENTS WHO ARE OR HAVE BEEN ENROLLED IN A CHEMICAL DEPENDENCY/SUBSTANCEABUSE PROGRAM, SOME INFORMATION MAY BE OMITTED. This clinical summary was aggregated from multiple sources. Caution should be exercised in using it in the provision of clinical care. This summary normalizes information from multiple sources, and as a consequence, information in this document may materially change the coding, format and clinical context of patient data. In addition, data may be omitted in some cases. CLINICAL DECISIONS SHOULD BE BASED ON THE PRIMARY CLINICAL RECORDS. [employer] [facility]. provides no warranty or guarantee of the accuracy or completeness of information in this document.
--- NOTE | 2024-04-11 13:17 | XR_ITS ---
The [place] [id number] Patient Name: MARILYNN YANG MRN: [id number] date: 1950 Sex: M Assigned Patient Location: ER Current Patient Location: ER Accession/Order Number: [id number] Exam Date: 04/11/2024 13:25 Report Date: 04/11/2024 14:00 At the request of: GEOFFREY MARINO Procedure: XR ankle RT min 3V EXAM: XR ankle RT min 3V HISTORY: Injury COMPARISON: None. TECHNIQUE: 3 views the right ankle. FINDINGS: No acute fracture or dislocation. Ankle mortise is congruent. Degenerative change of the tibiotalar joint. Calcaneal Achilles and plantar enthesophytes. Mild soft tissue swelling about the ankle most pronounced about the lateral malleolus. No radiodense foreign body. XR/XR ankle RT min 3V IMPRESSION: No acute osseous abnormality. Electronically authenticated by: NASEEM COTE Date: 04/11/2024 14:00
--- NOTE | 2024-04-11 13:17 | ED_ITS ---
HPI HPI - Extremity Injury (Lower) General Chief Complaint: Extremity Injury, Lower Stated Complaint: RT FOOT AND ANKLE PAIN Time Seen by Provider: 04/11/24 13:16 Source: patient Mode of arrival: Wheelchair History of Present Illness HPI Narrative: This patient has pain in his right foot and ankle area. He has known documented neuropathy and foot drop. He turned his ankle this morning. He is using a walker because he has increased difficulty walking and bearing weight since the time of the injury. He did not sustain out any other trauma to the knee hip or head or neck. Related Data Home Medications ?Medication ?Instructions ?Recorded ?Confirmed apixaban 5 mg tablet (Eliquis) 5 mg PO BID 04/11/24 04/11/24 atorvastatin 80 mg tablet 80 mg PO DAILY 04/11/24 04/11/24 carvedilol 25 mg tablet 25 mg PO BID 04/11/24 04/11/24 gabapentin 800 mg tablet 800 mg PO DAILY 04/11/24 04/11/24 isosorbide mononitrate 60 mg 60 mg PO DAILY 04/11/24 04/11/24 tablet,extended release 24 hr lisinopril 10 mg tablet 10 mg PO DAILY 04/11/24 04/11/24 Allergies Allergy/AdvReac Type Severity Reaction Status Date / Time No Known Drug Allergies Allergy Verified 04/11/24 13:04 Opioid HPI Opioid Management Most Recent Pain and Opioid Data: Last Pain Scale 10 04/11/24 13:06 Exam Narrative Exam Narrative: This patient's examination shows well-hydrated well-nourished he has a lower leg brace that he is not wearing at this time. He was wearing at the time of the injury. Examination shows no obvious ecchymosis deformity. The neurovascular examination he has good pulses. He does have occasional spontaneous twitching and muscle spasm of the lower leg from his neuropathy. There is no injury to either knee. X-rays were performed. Constitutional Vital Signs, click to edit/add: Last Vital Signs Temp 98.5 F 04/11/24 12:59 Pulse 78 04/11/24 12:59 Resp 18 04/11/24 12:59 BP 146/96 H 04/11/24 12:59 Pulse Ox 98 04/11/24 12:59 O2 Del Method Room Air 04/11/24 12:59 Course Vital Signs Vital signs: Vital Signs Temperature 98.5 F 04/11/24 12:59 Pulse Rate 78 04/11/24 12:59 Respiratory Rate 18 04/11/24 12:59 Blood Pressure 146/96 H 04/11/24 12:59 Pulse Oximetry 98 04/11/24 12:59 Oxygen Delivery Method Room Air 04/11/24 12:59 Temperature 98.5 F 04/11/24 12:59 Pulse Rate 78 04/11/24 12:59 Respiratory Rate 18 04/11/24 12:59 Blood Pressure 146/96 H 04/11/24 12:59 Pulse Oximetry 98 04/11/24 12:59 Oxygen Delivery Method Room Air 04/11/24 12:59 MDM - Extremity Injury (Lower) MDM Narrative Medical decision making narrative: Patient's x-rays were reviewed and do not show any acute fracture but there is some degenerative changes. Most of his injury today seems to be soft tissue. He probably should reduce his amount of weightbearing for several days, ice and elevation were advised Discharge Plan Discharge Stand Alone Forms: Portal Instructions Chief Complaint: Extremity Injury, Lower Clinical Impression: Ankle sprain and strain Patient Disposition: Home, Self-Care Time of Disposition Decision: 14:15 Prescriptions / Home Meds: No Action Eliquis 5 mg tablet 5 mg PO BID atorvastatin 80 mg tablet 80 mg PO DAILY carvedilol 25 mg tablet 25 mg PO BID gabapentin 800 mg tablet 800 mg PO DAILY isosorbide mononitrate 60 mg tablet extended release 24 hr 60 mg PO DAILY lisinopril 10 mg tablet 10 mg PO DAILY Print Language: Indonesian Additional Instructions: Restrict activity next 48 to 72 hours. Elevate and ice as needed Referrals: ERIK HELLER [Primary Care Provider] - 1 week
--- NOTE | 2024-04-11 13:17 | XR_ITS ---
The [address] [address] Patient Name: MARILYNN YANG MRN: [id number] date: 1950 Sex: M Assigned Patient Location: ER Current Patient Location: ER Accession/Order Number: [id number] Exam Date: 04/11/2024 13:25 Report Date: 04/11/2024 14:00 At the request of: GEOFFREY MARINO Procedure: XR foot RT min 3V EXAM: XR foot RT min 3V HISTORY: Injury COMPARISON: No previous foot x-ray. Right ankle x-ray 04/11/2024 TECHNIQUE: AP, oblique, lateral x-ray right foot. FINDINGS: No fracture or suspicious bone lesion. Mild degenerative changes without significant joint space narrowing. Soft tissues unremarkable. Small plantar calcaneal spur, moderate posterior calcaneal spur. XR/XR foot RT min 3V IMPRESSION: Negative for fracture. Degenerative changes including calcaneal spurs. Electronically authenticated by: MIMI WILLIAMSON Date: 04/11/2024 14:00
[2024-04-11 14:29] VITALS: BP 146/88; PULSE 76; O2SAT 98
== END 2024-04-11 14:29 | disposition home or self-care (01) ==
PROVIDERS: Emergency Provider Emergency Medicine Emergency Medical Services; PCP Internal Medicine
DX: S93.401A Sprain of unspecified ligament of right ankle, initial encounter (principal); S96.911A Strain of unspecified muscle and tendon at ankle and foot level, right foot, initial encounter; X50.9XXA Other and unspecified overexertion or strenuous movements or postures, initial encounter; Z79.01 Long term (current) use of anticoagulants; Z79.899 Other long term (current) drug therapy; G62.9 Polyneuropathy, unspecified; M21.379 Foot drop, unspecified foot
CPT/HCPCS: 73610; 73630; 99283

== ENCOUNTER 2024-09-04 06:50 | Outpatient (OUT) | payer OTHER, SELFPAY ==
--- NOTE | 2024-09-04 | PCN_ITS ---
CARDIAC STRESS TEST Requesting Physician: Leilani Horvath NP Procedure Date: 09/04/2024 SUPERVISING PROVIDER: Jodi Major M.D. STRESS TEST TYPE: Lexiscan stress test. Resting heart rate: 62 Max heart rate: 68 Resting blood pressure: 160/100 Maximum blood pressure: 160/100 ST changes: No significant ST changes meeting the criteria for ischemia. Symptoms: No symptoms reported. Arrhythmias: PVCs. CONCLUSION: 1. Resting EKG is abnormal with normal sinus rhythm, < > (unclear), left anterior fascicular block. 2. Resting blood pressure is abnormal at 160/100. 3. There were no significant ST changes meeting the criteria for ischemia post Lexiscan infusion. 4. Nuclear images will be interpreted and reported in a separate report. Please refer to this report. [facility]
--- OUTSIDE RECORDS SUMMARY | 2024-09-04 06:53 | XMS_ITS | CCD ---
Author Organization [facility] Inform ion Partnership [facility] Care Team Providers Care Plant Propagator Name Role Phone TEODORO, DIANA Unavailable Unavailable DICKSON, DIANA Unavailable Unavailable DICKSON, DIANA Unavailable Unavailable UNKNOWN, PHYSICIAN Unavailable Unavailable DR ERIK HELLER Primary Care Unavailable DIAB Cherie, JOHNNY Admitting Unavailable BESS Crespo, JOHNNY Attending Unavailable NATHAN RUIZ Consulting Unavailable DIAB ., JOHNNY Consulting Unavailable ERIK HELLER Attending Unavailable ERIK HELLER Attending Unavailable ERIK HELLER Attending Unavailable TROY FITZGERALD Attending Unavailable AMBER CAMACHO Attending Unavailable AMBER CAMACHO Referring Unavailable KIRAJOHN LENZ Referring Unavailable KIRAJOHN Referring Unavailable FLO COOK Attending Unavailable Problems Active Problems Problem Classification Problem Date Documented Date Episodic/Chronic Cardiac dysrhythmias (1 source) Unspecified atrial fibrillation; Translations: [UNSPECIFIED ATRIAL FIBRILLATION] Onset: 03-29-2023 Chronic Conduction disorders (3 sources) Presence of cardiac pacemaker; Translations: [Encounter for checking and testing of cardiac pacemaker pulse generator [battery]] Onset: 03-29-2023 Chronic Coronary atherosclerosis and other heart disease (6 sources) Atherosclerotic heart disease of [place] coronary artery without angina pectoris; Translations: [ATHSCL HEART DISEASE OF [place] CORONARY ARTERY W/O ANG PCTRS] Onset: 12-24-2017 Chronic Coronary atherosclerosis and other heart disease (1 source) Presence of coronary angioplasty implant and graft; Translations: [PRESENCE COR ANGPLSTY IMPLANT AND GRAFT] Onset: 03-29-2023 Episodic E Codes: Natural/environment (1 source) Exposure to other specified factors, initial encounter; Translations: [EXPOSURE OTHER SPEC FACTORS INITIAL] Onset: 03-29-2023 Episodic Other aftercare (1 source) 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; Translations: [SENIOR LIVING CURRNT USE ANTICOAGULANTS] Onset: 03-29-2023 Episodic Other [...] UNS PARTS NECK INIT] Onset: 03-29-2023 Episodic Unclassified (1 source) Other ventricular tachycardia; Translations: [Other ventricular tachycardia] Onset: 08-25-2024 Past or Other Problems Problem Classification Problem Date Documented Da te Episodic/Chronic Unclassified (1 source) Other ventricular tachycardia; Translations: [Other ventricular tachycardia] Onset: 08-25-2024 Results Test Name Value Interpretation Reference Range Facility Office Visiton 08-25-2024 Follow-up visit [id number] Marilynn Yang 1950 M Date Provider Department Center 08/25/2024 FLO YOUSSEF CARD [facility] No family history on file Level of Service:44492 [place] OFFICE/OUTPATIENT ESTABLISHED MOD MDM 30 MIN Reason for Visit and Comments: Coronary Artery Disease [187] Hypertension [579299] Atrial Fibrillation [80] Normal [facility] CT CSPINE WO CONon 3 CT CSPINE [...] authenticated by: NATHAN RUIZ Date: 2023-03-27 05:44 Normal [facility] CBC W/DIFFon 12-24-2017 ABS BASOPHILS 0.1 10*3/uL Normal 0.0-0.2 [facility] Comment on above: Performed By: #### 5 0103 ####[facility] [place] [address], [facility] ABS IMM GRANS 0.0 10*3/uL Normal 0.0-0.2 [facility] Comment on above: Performed By: #### 3 ####[facility] [place] [address], [facility] Basophils Auto #/vol (Bld) 0.9 % Normal 0.0-1.0 [facility] Comment on above: Performed By: #### 102 ####[facility] [facility] [place] [address], [facility] Eosinophils 0.3 10*3/uL Normal 0.0-0.5 [facility] Comment on above: Performed By: #### 102 ####[facility] [facility].[address] Eosinophils/100 leukocytes 3.4 % Normal 0.0-6.0 [facility] Comment on above: Performed By: #### 102 ####[facility] [facility].[address] Erythrocyte distribution width Auto Ratio (RBC) 14.2 % Normal 11.5-15.0 [facility] Comment on above: Performed By: #### 3 ####[facility] [facility].[address] Erythrocytes (RBC) 5.79 10*6/uL High 4.20-5.70 [facility] Comment on above: Performed By: #### 3 ####[facility] [facility] [place] [address], [facility] Erythrocytes (RBC) 0 % Normal 0-0 [facility] Comment on above: Performed By: #### 3 ####[facility] Hematocrit (HCT) 48.2 % Normal 39.0-50.0 [facility] Comment on above: Performed By: #### 5 0103 ####[facility] [facility] [place] [address], [facility] Hemoglobin mass conc (Bld) 16.0 g/dL Normal 13.0-17.0 [facility] Comment on above: Performed By: #### 5 0103 ####[facility] [facility] [place] [address], [facility] IMMATURE GRANS 0.1 % Normal 0.0-1.0 [facility] Comment on above: Performed By: #### 5 0103 ####[facility] Lymphocytes 2.0 10*3/uL Normal 1.2-4.0 [facility] Comment on above: Performed By: #### 5 0103 ####[facility] [place] [address], [facility] Lymphocytes/100 leukocytes 26.6 % Normal 20.0-45.0 [facility] Comment on above: Performed By: #### 5 0103 ####[facility] [facility] [place] [address], [facility] MCH 27.6 pg Normal 27.0-33.0 [facility] Comment on above: Performed By: #### 5 0103 ####[facility] [facility] [place] [address], [facility] MCHC mass conc (RBC) 33.2 g/dL Normal 32.0-35.0 [facility] Comment on above: Performed By: #### 5 0103 ####[facility] [place] [address], [facility] MCV 83.2 fL Normal 82.0-98.0 [facility] Comment on above: Performed By: #### 5 0103 ####[facility] [facility].[address] Monocytes 0.7 10*3/uL Normal 0.1-1.0 [facility] Comment on above: Performed By: #### 5 0103 ####[facility] MONOS 9.7 % Normal 5.0-12.0 [facility] Comment on above: Performed By: #### 5 0103 ####[facility] Neutrophils 4.4 10*3/uL Normal 1.6-7.6 [facility] Comment on above: Performed By: #### 5 0103 ####[facility] Neutrophils/100 leukocytes 59.3 % Normal 40.0-72.0 [facility] Comment on above: Performed By: #### 5 0103 ####[facility] PLAT CNT 238 10*3/uL Normal 150-400 [facility] Comment on above: Performed By: #### 5 0103 ####[facility] WBC (Leukocytes) 7.4 10*3/uL Normal 4.0-10.6 [facility] Comment on above: Performed By: #### 5 0103 ####[facility] COMP METABOLIC PANELon 12-24 Alanine aminotransferase (ALT) 30 U/L Normal 7-52 [facility] Comment on above: Performed By: #### 0 0121, 78941 ####[facility] [place] [address], [facility] Albumin 4.3 g/dL Normal 3.5-5.7 [facility] Comment on above: Performed By: #### 0 0121, 13998 ####[facility] [place] [address], [facility] ALKALINE PHOSPH 67 IU/L Normal 34-104 [facility] Comment on above: Performed By: #### 0 0121, 34831 ####[facility] [place] [address], [facility] Aspartate aminotransferase (AST) 23 U/L Normal 13-39 [facility] Comment on above: Performed By: #### 0 0121, 76442 ####[place] [address] [place] [address], [facility] Bilirubin (total) 0.3 mg/dL Normal 0.3-1.0 [facility] Comment on above: Performed By: #### 0 0121, 69370 ####[place] [address] [place] [address], [facility] Calcium 9.2 mg/dL Normal 8.6-10.3 [facility] Comment on above: Performed By: #### 0 0121, 51149 ####[facility] [place] [address], [facility] Chloride 109 mmol/L High 98-107 [facility] Comment on above: Performed By: #### 0 0121, 80966 ####[facility] [place] [address], [facility] CO2 25 mmol/L Normal 21-31 [facility] Comment on above: Performed By: #### 0 0121, 68169 ####[facility] [place] [address], [place] Creatinine 0.94 mg/dL Normal 0.70-1.30 [facility] Comment on above: Performed By: #### 0 0121, 69154 ####[facility] [place] [address], [facility] eGFR (black) mL/min/{1.73_m2} Normal >60 [facility] Comment on above: Performed By: #### 0 0121, 85533 ####[facility] [place] [address], [facility] eGFR (non-black) mL/min/{1.73_m2} Normal >60 Th e [facility] Comment on above: Performed By: #### 0 0121, 51703 ####[facility] [place] [address], [facility] Glucose mass conc 100 mg/dL Normal 70-100 [facility] Comment on above: Performed By: #### 0 012, 39484 ####[facility] [place] [address], [facility] Potassium molar conc 4.2 mmol/L Normal 3.5-5.1 [facility] Comment on above: Performed By: #### 0 0121, 73706 ####[facility] [place] [address], [facility] Protein 7.0 g/dL Normal 6.0-8.3 [facility] Comment on above: Performed By: #### 0 0121, 51879 ####[facility] [place] [address], [facility] Sodium 140 mmol/L Normal 136-145 [facility] Comment on above: Performed By: #### 0 0121, 44285 ####[facility] [place] [address], [facility] Urea nitrogen 18 mg/dL Normal 7-25 [facility] Comment on above: Performed By: #### 0 0121, 77238 ####[facility] [facility].[address] LIPID PROFILEon 12-24-2017 Cholesterol 120 mg/dL Normal 120-200 [facility] Comment on above: Result Comment: CHOL ESTEROL REFERENCE RANGE:20 YEARS AND OLDER CARDIOVASCULAR RISKLess than 200 mg/dl Low Omby777 to 239 mg/dl Borderline Ibfj914 mg/dl and greater High Risk Performed By: #### 0 0121, 90116 ####[facility] [facility].[address] Cholesterol to HDL Ratio 3.8 {ratio} Normal .0-4.5 [facility] Comment on above: Performed By: #### 0 0121, 02677 ####[facility] [facility].[address] HDL Cholesterol 32 mg/dL Normal 23-92 [facility] Comment on above: Result Comment: Slig ht variation in normal range could be due to gender and/or age.HDL CHOLESTEROL REFERENCE RANGE:20 years and older Cardiovascular Risk> or =60 mg/dL Zjztppeph56 TO 59 mg/dL Low Risk<40 mg/dL High Risk Performed By: #### 0 0121, 35679 ####[facility] [facility].[address] LDL Cholesterol 65 mg/dL Normal 0-130 [facility] Comment on above: Result Comment: LDL IS A CALCULATIONLDL IS ONLY VALID IF THE TRIG IS LESS THAN 400. Performed By: #### 0 0121, 69396 ####[facility] [facility].[address] NON-HDL CHOLESTEROL 88 mg/dL Normal [facility] Comment on above: Performed By: #### 0 0121, 92608 ####[facility] Triglyceride 113 mg/dL Normal 40-149 [facility] Comment on above: Result Comment: TRIG LYCERIDE REFERENCE RANGE:20 YEARS AND OLDER CARDIOVASCULAR RISKLESS THAN 150 mg/dl LOW YDPP560 TO 199 mg/dl BORDERLINE OPPT395 mg/dl AND GREATER HIGH RISK Performed By: #### 0 0121, 62525 ####[facility] VLDL CHOL 23 mg/dL Normal 0-40 [facility] Comment on above: Performed By: #### 0 0121, 55567 ####[facility] Encounters Encounter Date Encounter Type Care Provider Facility Start: 08-25-2024 End: 08-25-2024 ambulatory [facility] Start: 08-10-2024 End: 08-10-2024 ambulatory AMBER CAMACHO Not Available Start: 07-07-2024 End: 07-07-2024 ambulatory [facility] Start: 04-02-2024 End: 04-02-2024 ambulatory TROY FITZGERALD Not Available Start: 02-26-2024 End: 02-26-2024 ambulatory ERIK HELLER Not Available Start: 02-12-2024 End: 02-12-2024 ambulatory ERIK HELLER Not Available Start: 01-22-2024 End: 01-22-2024 ambulatory ERIK HELLER Not Available Start: 01-07-2024 End: 01-07-2024 ambulatory JOHN [facility] Start: 03-27-2023 End: 03-27-[address] ERIK HELLER Facility: Start: 12-24-2017 End: 12-25-2017 Ambulatory DIANA DICKSON Facility:[facility] Payers Date Payer Category Payer Unknown [id number] 1950 Unknown [id number] 2.16.84 [id number] 1950 Unknown [id number] 2.16.84 [id number] 1950 Unknown [id number] 2.16.84 [id number] 1950 Unknown [id number] 2.16.84 [id number] 1950 Unknown [id number] 2.16.84 [id number] 1950 Unknown [id number] 2.16.84 [id number] 1950 Unknown [id number] 2.16.84 [id number] 1950 Unknown [id number] 2.16.84 [id number] Medicare [id number] Progress note 08-25-2024 Note Date & Type Note Facility 08-25-2024 Note Pt is here for a one year follow up. Pt denies sob, chest pain, and palpatatiions. Review of Systems Musculoskeletal: Positive for arthritis, back pain and joint pain. All other systems reviewed and are negative. [facility] Progress note 08-25-2024 Note Date & Type Note Facility 08-25-[address] [facility] SUBJECTIVE Chief Complaint Patient presents with Coronary Artery Disease Hypertension Atrial Fibrillation Marilynn Yang is a 74 y.o. male here for follow-up. Atrial Fibrillation [...] RCA 2015, AV block s/p PPM ([employer]) 08/25/2024 He is asking about neuropathy treatment - recommended he discuss further with his PCP. BP at home running 120s/80s. He has been feeling well. Denies c/o CP, dyspnea, orthopnea, PND, LE edema, dizziness/LH, palpitations, syncope. 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 Prior HPI per Dr. Dickson 03/2016: Patient presented to [facility] with unstable angina and was transferred to [facility]. I performed cardiac cath and found 100% [...] procedure Syncope PAF (paroxysmal atrial fibrillation) (CMS/HCC) Difficulty walking History of coronary artery stent placement History of total knee replacement Status post right knee replacement Lumbar stenosis with neurogenic claudication Obesity (BMI 30-39.9) Other chronic pain Paresthesia of skin Pure hypercholesterolemia Thoracic spondylosis with myelopathy Past Medical History: Diagnosis Date Abnormal ECG [...] with cane OBJECTIVE Visit Vitals BP (!) 139/93 Pulse 63 Ht 1.753 m (5' 9 ) Wt 96.2 kg (212 lb) SpO2 95% BMI 31.31 kg/m??? Smoking Status Never BSA 2.16 m??? Medications: Current Outpatient Medications: aspirin 81 [...] capsule in the morning., Disp: , Rfl: Eliquis 5 mg tablet, TAKE 1 TABLET IN THE MORNING AND AT BEDTIME, Disp: 180 tablet, Rfl: 3 gabapentin (Neurontin) 800 mg tablet, gabapentin 800 mg tablet, Disp: , Rfl: isosorbide mononitrate ER (Imdur) 60 mg 24 hr tablet, isosorbide mononitrate ER 60 mg tablet,extended release 24 hr, Disp: , Rfl: lisinopril 10 mg tablet, TAKE 1 TABLET IN THE MORNING. INCREASING DOSE. DISCONTINUE 5MG DOSE., Disp: 90 tablet, Rfl: 3 Physical Exam Constitutional: Appearance: Normal appearance. He is normal weight. HEN (more content not included)... [facility] Summary Purpose Family History No Family History [...] section and content) DATE CREATED AUTHOR 05/19/2018 [facility] DATE CREATED AUTHOR AUTHOR'S ORGANIZ ATION 03/30/2023 [facility] DATE CREATED AUTHOR AUTHOR'S ORGANIZ ATION 08/16/2024 [facility] EPIC DATE CREATED AUTHOR AUTHOR'S ORGANIZ ATION 08/31/2024 [facility] FOR RECORDS PERTAINING TO PATIENTS WHO ARE [...] BE BASED ON THE PRIMARY CLINICAL RECORDS. [employer] provides no warranty or guarantee of the accuracy or completeness of information in this document.
--- NOTE | 2024-09-04 07:00 | NM_ITS ---
Patient Name: MARILYNN YANG MR#: [id number] : 1950 Exam Date: 09/04/2024 Ordering Doctor: FLO COOK CNP RADIOLOGY REPORT PROCEDURE: NM CHRIS PERF SPECT REST STR COMPARISON: None. INDICATIONS: CORONARY ARTERY DISEASE, VENTRICULAR TACHYCARDIA TECHNIQUE: Exam Description: Rest/Stress one day protocol gated SPECT Rest Imagin.6 mCi Tc-99m Cardiolite IV on 09/04/2024 Stress Imaging 30.3 mCi Tc-99m Cardiolite IV on 09/04/2024 Exercise Protocol: 0.4 mg Lexiscan given IV Heart Rate (bpm): Rest: 62 Max: 68 PMHR: 46 Blood Pressure: Rest: 160/100 Max: 160/100 Symptoms: Rest and peak stress ECG findings were pending and the exercise portion of the study was pending per attending physician Dr. VAN . For more details please see separate cardiac stress test report. FINDINGS: QUALITY OF STUDY: Good. PERFUSION DEFECT: LOCATION: Basal inferoseptal. Basal inferior. Basal inferolateral. Mid-inferoseptal. Mid-inferior. Apical anterior. [place]. SIZE: Large (5 or more segments). SEVERITY: Moderate. TYPE: Persistent. WALL MOTION: Normal. LV SIZE: Enlarged; EDV 130 mL. TID / TCD: Yes; 1.2 LVEF: Abnormal. Calculated EF 47%. SUMMARY: Myocardial perfusion imaging study has ABNORMAL findings. CONCLUSION: 1. Fixed defect in the inferior wall, RCA distribution 2. Fixed defect at the apex 3. No reversible ischemia 4. Dilated left ventricle, EDV 137 milliliters 5. Borderline TID of 1.2 6. Low left ventricular ejection fraction 47% 7. Pending exercise test results Dictated by: Holland Aragon MD on 09/04/2024 at 11:59 Approved by: Holland Aragon MD on 09/04/2024 at 12:01
--- NOTE | 2024-09-04 07:30 | CA_ITS ---
Patient Name: MARILYNN YANG MR#: [id number] : 1950 Exam Date: 09/04/2024 Ordering Doctor: FLO COOK CNP ECHOCARDIOGRAM REPORT PROCEDURE: CA ECHO DOPPLER COMPLETE INDICATIONS: Coronary artery disease, CT, pacemaker, hypertension COMPARISON: None. DESCRIPTION: COMPLETE ECHOCARDIOGRAM Real-time transthoracic echocardiography with 2D, M-mode, spectral and color flow Doppler performed. QUALITY: Technical quality was good. LEFT VENTRICLE: Normal chamber size. Moderate concentric left ventricular hypertrophy. Normal systolic function. LV EF: Normal left ventricular ejection fraction, (55%). DIASTOLIC: Diastolic function is indeterminate. ATRIAL SEPTUM: Visually appears intact. LEFT ATRIUM: Mild dilatation. RIGHT ATRIUM: Mild dilatation. RIGHT VENTRICLE: Normal chamber size. Normal systolic function. Pacer wire present. TRICUSPID VALVE: Normal mobility and thickness. No stenosis with mild regurgitation. No evidence of pulmonary hypertension. RVSP 34 mmHg MITRAL VALVE: Normal mobility and thickness. No evidence of mitral valve stenosis. There is no mitral annular calcification. Mild mitral regurgitation. AORTIC VALVE: Normal trileaflet appearance. Thickened aortic valve. Normal leaflet mobility. No evidence of aortic valve stenosis. Trivial aortic regurgitation. AORTIC ROOT: Normal diameter and appearance. Ascending aorta is normal in size. PULMONIC VALVE: Normal thickness and mobility. No stenosis. Trivial regurgitation. PERICARDIUM: No evidence of pericardial effusion. IVC: IVC is normal in size, does not fully collapse. PLEURA: CONCLUSION: 1. Moderate concentric left ventricular hypertrophy with normal systolic function. LVEF is 55%. 2. Normal right ventricular size and systolic function. 3. No significant valvular dysfunction. 4. Normal right-sided pressures. 5. Mild biatrial dilatation. Adult Echocardiography Procedure Report Left Ventricle LVEDD (3.7 - 5.6 cm): 4.34 cm LVESD (2.2 - 4.0 cm): 2.66 cm LVIVS thickness (0.6 - 1.2 cm): 1.69 cm LVPW thickness (0.5 - 1.0 cm): 1.38 cm e': 0.06 m/s E - e': 6.37 LVOT Max Gradient: 1.83 mm[Hg] LVOT Area (cm2): 0.68 m/s Peak Velocity (LVOT): 0.68 m/s Mean Velocity (LVOT): 0.45 m/s LVOT Diameter 2.63 cm Left Atrium LA Volume Index (2D A2C): 46.39 ml/m2 Left Atrium Systolic Dimension: 4.12 cm Mitral Valve MV E to A Ratio: 0.78 Mitral Valve A-Wave Peak Velocity: 0.50 m/s Mitral Valve E-Wave Peak Velocity: 0.39 m/s Right Ventricle Aorta AO Root Diam: 4.13 cm Ascending Ao Diam: 3.34 cm Aortic Valve AoV Area (Peak Roney): 3.85 cm2, 3.85 cm2 AoV Area (VTI): 3.33 cm2, 3.33 cm2 Peak Velocity(Antegrade Flow): 0.96 m/s Peak Gradient(Antegrade Flow): 3.67 mm[Hg] Mean Velocity(Antegrade Flow): 0.69 m/s Mean Gradient(Antegrade Flow): 2.09 mm[Hg] Velocity Time Integral: 23.52 cm Tricuspid Valve Peak Velocity (Regurgitant Flow): 2.56 m/s Pulmonic Valve Mean Gradient: 1.64 mm[Hg] Mean Velocity: 0.59 m/s Peak Velocity: 1.03 m/s, 1.09 m/s Peak Gradient: 4.71 mm[Hg], 4.26 mm[Hg] Right Atrium Right Atrium Systolic Pressure: 65.63 ml, 65.63 ml Dictated by: Bentley Osuna M.D. on 09/04/2024 at 17:14 Approved by: Bentley Osuna M.D. on 09/04/2024 at 17:17
[2024-09-04] MEDS: REGADENOSON 0.4 MG/5 ML SYRINGE IV (09:22)
--- NOTE | 2024-09-04 09:31 | PC.NURSE ---
Nursing Note Cardiac Stress Test Reviewed: Medication, allergies and patient history reviewed. Stress Test: [ x] Patient tolerated stress test well. [ ] Patient unable to tolerate walking on treadmill. Switched to Lexiscan stress test. [x ] No chest pain noted per patient [ ] Chest pain that resolved prior to leaving stress lab. [ x] No dyspnea noted. [ ] Dyspnea that resolved prior to leaving stress lab. [ x] Patient left stress lab asymptomatic and hemodynamically stable. [ ] Patient taken to the Emergency Room due to non-resolving symptoms following stress test. [ ] Patient achieved target heart rate. [ ] Patient unable to achieve target heart rate. [ ] Aminophylline administered as reversal agent to Lexiscan (Regadenoson). [ ] Nitro administered. Nursing Comments:Pt had Lexiscan done. NO issues noted. Pt ambulated to cafeteria for breakfast prior to lastr set of images. Left lab non symptomatic.
== END 2024-09-04 06:51 | disposition home or self-care (01) ==
LOC: NM 06:51
PROVIDERS: PCP Internal Medicine; Visit Provider Nurse Practitioner Family
DX: I25.10 Atherosclerotic heart disease of native coronary artery without angina pectoris (principal); I47.29 Other ventricular tachycardia
CPT/HCPCS: 78452; 93017; 93306; A9500; J2785

== ENCOUNTER 2025-02-18 19:26 | Emergency (ER) | payer OTHER, SELFPAY ==
[2025-02-18] VITALS (7 sets, daily range): BP systolic 143–198; BP diastolic 85–133; PULSE 60–89; TEMP 36.4–36.7; O2SAT 96–98; BMI 32.5
--- OUTSIDE RECORDS SUMMARY | 2025-02-18 19:32 | XMS_ITS | CCD ---
Author Organization [facility] Care Team Providers Care Town Manager Name Role Phone GARCIA, DIANA Unavailable Unavailable GARCIA, DIANA Unavailable Unavailable GARCIA, DIANA Unavailable Unavailable UNKNOWN, PHYSICIAN Unavailable Unavailable DR ABBE GAY Primary Care Unavailable JOHNNY AMBROSE Admitting Unavailable JOHNNY AMBROSE Attending Unavailable NATHAN RUIZ Consulting Unavailable BESS ., JOHNNY Consulting Unavailable Abbe Gay MD Unavailable Abbe Gay MD Primary Care Provider JOHN MALONE Referring Unavailable JOHN MALONE Referring Unavailable FLO HORVATH Attending Unavailable ABBE GAY Attending Unavailable ABBE GAY Attending Unavailable ABBE GAY Attending Unavailable TROY FITZGERALD Attending Unavailable AMBER SHELBY Attending Unavailable AMBER SHELBY Referring Unavailable ABBE GAY Attending Unavailable KEANU FERMIN Attending Unavailable ABBE GAY Referring Unavailable KEANU FERMIN Attending Unavailable ABBE GAY Attending Unavailable CHAYO SANTA Attending Unavailable Medications Current Medications Medication Drug Class(es) Dates Sig (Normalized) Sig (Original) apixaban 5 mg oral tablet (15 sources) Factor Xa Inhibitor Start: 04-09-2024 take 1 tablet by mouth in the morning apixaban (Eliquis) 5 MG tablet Indications: History of cardiac pacemaker Take 1 tablet (5 mg) by mouth in the morning and 1 tablet (5 mg) before bedtime. 60 tablet 11 04/09/2024 Active aspirin 81 mg oral tablet (15 sources) Platelet Aggregation Inhibitor, Nonsteroidal Anti-inflammatory Drug take 81 mg by mouth once daily ASPIRIN 81 PO Take 81 mg by mouth Daily Active ASPIRIN 81 PO Ac tive atorvastatin 80 mg oral tablet (15 sources) HMG-CoA Reductase Inhibitor take 1 tablet by mouth once daily atorvastatin (Lipitor) 80 MG tablet Take 80 mg by mouth 1 (one) time each day at the same time. Active carvedilol 25 mg oral tablet (15 sources) alpha-Adrenergic Rusty, beta-Adrenergic Rusty Start: 06-28-20 take 1 tablet by mouth in the morning carvedilol (Coreg) 25 MG tablet Take 25 mg by mouth in the morning and 25 mg in the evening. Take with meals. 06/28/2023 Active cyclobenzaprine hydrochloride 10 mg oral tablet (5 sources) Muscle Relaxant Start: 08-10-20 End: 09-02-20 take 1 tablet by mouth at bedtime cyclobenzaprine (Flexeril) 10 MG tablet Indications: Muscle spasms of neck Take 1 tablet (10 mg) by mouth at bedtime 30 tablet 2 08/10/2024 09/02/2024 Discontinued Gabapentin, Once-Daily, 900 MG tablet (5 sources) Start: 04-08-20 End: 09-02-20 take 1 tablet by mouth at bedtime Gabapentin, Once-Daily, 900 MG tablet Indications: Osteoarthritis of spine with radiculopathy, cervical region Take 900 mg by mouth at bedtime 60 tablet 04/08/2024 09/02/2024 Discontinued Start: 04-08-2024 take 1 tablet by td th at bedtime Gabapentin, Once-Daily, 900 MG tablet Indications: Osteoarthritis of spine with radiculopathy, cervical region Take 900 mg by mouth at bedtime 60 tablet 04/08/2024 Active 24 hr isosorbide mononitrate 60 mg extended release oral tablet (15 sources) Nitrate Vasodilator take 1 tablet by mouth once daily, then take 1 tablet by mouth every twenty-four hours isosorbide mononitrate ER (Imdur) 60 MG 24 hr tablet Take 60 mg by mouth 1 (one) time each day at the same time. Active lisinopril 10 mg oral tablet (17 sources) Angiotensin Converting Enzyme Inhibitor Start: 06-16-20 take 1 tablet by mouth once daily lisinopril 10 MG tablet Take 10 mg by mouth Daily 06/16/2024 Active Start: 01-22-2024 End: 08-10-2024 take 1 tablet by mouth once daily lisinopril 20 MG tablet Indications: Essential hypertension (CMS/HCC) Take 1 tablet (20 mg) by mouth Daily 90 tablet 3 01/22/2024 08/10/2024 Discontinued (Med list cleanup) 24 hr metoprolol succinate 50 mg extended release oral tablet (15 sources) beta-Adrenergic Rusty Start: 12-18-2022 take 1 tablet by mouth once daily metoprolol succinate XL (Toprol-XL) 50 MG 24 hr tablet Take 50 mg by mouth Daily 12/18/2022 Active Start: 12-18-2022 take 1 tablet by td th every twenty-four hours in the morning metoprolol succinate XL (Toprol-XL) 50 MG 24 hr tablet Take 50 mg by mouth in the morning. 12/18/2022 Active ubidecarenone 100 mg / vitam in e 5 unt oral capsule (15 sources) take 1 capsule by mo uth once daily coenzyme Q-10 100 MG capsule Take 1 capsule by mouth 1 (one) time each day at the same time. Active Completed/Discontinued Medications Medication Drug Class(es) Dates Sig (Normalized) Sig (Original) gabapentin 800 mg oral tablet (12 sources) Anti-epileptic Agent Start: 06-14-2024 End: 10-05-2024 take 1 tablet by mouth once daily gabapentin (Neurontin) 800 MG tablet Take 800 mg by mouth Daily 06/14/2024 10/05/2024 Discontinued Problems Active Problems Problem Classification Problem Date Documented Date Episodic/Chronic Cardiac dysrhythmias (18 sources) Unspecified atrial fibrillation; Translations: [Paroxysmal atrial fibrillation] Onset: 03-17-2023 01-21-2024 Chronic Conduction disorders (20 sources) Presence of cardiac pacemaker; Translations: [Heart block ] Onset: 07-19-2016 08-05-2023 Chronic Coronary atherosclerosis and other heart disease (20 sources) Atherosclerotic heart disease of [place] coronary artery without angina pectoris; Translations: [Coronary atherosclerosis] Onset: 12-24-2017 08-05-2023 Chronic Coronary atherosclerosis and other heart disease (1 source) Presence of coronary angioplasty implant and graft; Translations: [PRESENCE COR ANGPLSTY IMPLANT AND GRAFT] Onset: 03-29-2023 Episodic Disorders of lipid metabolism (20 sources) Hyperlipidemia; Translations: [Hyperlipidemia, unspecified] Onset: 12-26-2022 Resolved: 04-02-2024 01-21-2024 Chronic E Codes: Natural/environment (1 source) Exposure to other specified factors, initial encounter; Translations: [EXPOSURE OTHER SPEC FACTORS INITIAL] Onset: 03-29-2023 Episodic Essential hypertension (17 sources) Essential hypertension; Translations: [Essential (primary) hypertension] Onset: 08-05-2023 08-05-2023 Chronic Occlusion or stenosis of precerebral arteries (15 sources) Arteriosclerosis of carotid artery; Translations: [Occlusion and stenosis of bilateral carotid arteries] Onset: 02-12-2024 02-12-2024 Chronic Osteoarthritis (20 sources) Osteoarthritis of right knee joint; Translations: [Unilateral primary osteoarthritis, right knee] Onset: 08-05-2023 Resolved: 04-02-2024 08-05-2023 Chronic Other aftercare (1 source) USP (current) use of anticoagulants; Translations: [CRACKER OFF CURRNT USE ANTICOAGULANTS] Onset: 03-29-2023 Episodic Other connective tissue disease (20 sources) History of total knee arthroplasty; Translations: [Presence of unspecified artificial knee joint] Onset: 08-05-2023 Resolved: 04-02-2024 08-05-2023 Chronic Other connective tissue disease (1 source) Other muscle spasm; Translations: [OTHER MUSCLE SPASM] Onset: 03-29-2023 Episodic Other connective tissue disease (1 source) Arthrodesis status; Translations: [ARTHRODESIS STATUS] Onset: 03-29-2023 Episodic Other nervous system disorders (15 sources) Difficulty walking; Translations: [Difficulty in walking, not elsewhere classified] Onset: 08-05-2023 08-05-2023 Chronic Other nervous system disorders (15 sources) Chronic pain; Translations: [Other chronic pain] Onset: 08-05-2023 08-05-2023 Chronic Other nervous system disorders (7 sources) Paresthesia of foot ; Translations: [Anesthesia of skin] 09-02-2024 Episodic Other nutritional; endocrine; and metabolic disorders (15 sources) Obesity caused by energy imbalance; Translations: [Class 1 obesity due to excess calories with serious comorbidity and body mass index (BMI) of 32.0 to 32.9 in adult] Onset: 04-02-2024 04-02-2024 Chronic Retinal detachments; defects; vascular occlusion; and retinopathy (15 sources) Cholesterol retinal embolus of left eye; Translations: [Partial retinal artery occlusion, left eye] Onset: 01-22-2024 01-22-2024 Chronic Screening and history of mental health and substance abuse codes (1 source) Personal history of nicotine dependence; Translations: [PERSONAL HISTORY OF NICOTINE DEPEND] Onset: 03-29-2023 Episodic Spondylosis; intervertebral disc disorders; other back problems (20 sources) Cervical spondylosis; Translations: [Spondylosis without myelopathy or radiculopathy, cervical region] Onset: 08-05-2023 08-05-2023 Chronic Spondylosis; intervertebral disc disorders; other back problems (20 sources) Cervicalgia; Translations: [Spinal stenosis of lumbar region] Onset: 03-27-2023 Episodic Sprains and strains (1 source) Sprain of joints and ligaments of unspecified parts of neck, initial encounter; Translations: [SPRAIN JNT LIG UNS PARTS NECK INIT] Onset: 03-29-2023 Episodic Unclassified (1 source) Other ventricular tachycardia; Translations: [Other ventricular tachycardia] Onset: 08-25-2024 Past or Other Problems Problem Classification Problem Date Documented Da te Episodic/Chronic Mood disorders (15 sources) Mood disorders Onset: 04-02-2024 04-02-2024 Other gastrointestinal disorders (15 sources) Stool DNA-based colorectal cancer screening positive; Translations: [Other fecal abnormalities] Onset: 04-21-2024 04-21-2024 Episodic Other nervous system disorders (15 sources) Paresthesia; Translations: [Paresthesia of skin] Onset: 08-05-2023 08-05-2023 Episodic Other nutritional; endocrine; and metabolic disorders (15 sources) Body mass index 30+ - obesity; Translations: [Obesity, unspecified] Onset: 08-05-2023 Resolved: 04-02-2024 04-02-2024 Chronic Unclassified (1 source) Other ventricular tachycardia; Translations: [Other ventricular tachycardia] Onset: 08-25-2024 Results Test Name Value Interpretation Reference Range Facility 36on 09-17-2024 36 Concerning stress and echo ----- Message ----- From: Flo Horvath NP Sent: 09/15/2024 2:26 PM EDT To: Chayo Garrison MA Subject: RE: Scan Please let him know his stress test was negative for ischemia. His ECHO showed normal pumping function. The left side of his heart is moderately enlarged from hypertension. Please ask what his BP readings have been at home as better BP control will help prevent this enlargement from worsening. Thanks! Gave pt this message. Normal [facility] EMG 2 Extremitieson 09-10-20 L5 and S1 radiculopathy bilaterally. Worse on the right. Hello! [facility] NVC 9-10 Nerveson 09-10-2024 L5 and S1 radiculopathy bilaterally. Worse on the right. [facility] Office Visiton 08-25-2024 Follow-up visit [id number] Iraj Valentine Zaheer 1950 M Date Provider Department Center 08/25/2024 FLO [facility] CARD [facility] No family history on file Level of Service:30562 [place] OFFICE/OUTPATIENT ESTABLISHED MOD MDM 30 MIN Reason for Visit and Comments: Coronary Artery Disease [187] Hypertension [495030] Atrial Fibrillation [80] Normal [facility] XR Knee - left 1 or 2 Viewso n 08-11-2024 Imaging Result: August 10, 2024 x-rays AP and lateral of the left knee demonstrate cemented knee replacement in good position alignment without signs of loosening fracture or failure. Impression: Stable appearance of left total knee replacement Cipriano Hendricks D.O. [employer] XR Knee - left 1 or 2 ViewsO rdered By: Ronak Hendricks on 08-11-2024 [employer] Work Phone: XR Knee - right 1 or 2 Views on 08-11-2024 Imaging Result: August 10 2004 x-rays AP weight-bearing bilateral knees and lateral of the right knee demonstrate cemented knee replacement on the right side in good position alignment without signs of loosening fracture or failure. Impression: Stable appearance right total knee replacement Cipriano Hendricks D.O. [facility] No Panel Informationon 08-10 Radiology Study observation (narrative) [employer] CT CSPINE WO CONon 3 CT CSPINE [...] NATHAN RUIZ Date: 2023-03-27 05:44 Normal [facility] CBC W/DIFFon 01-30-2018 ABS BASOPHILS 0.1 10*3/uL Normal 0.0-0.2 [facility] Comment on above: Performed By: #### 5 0103 ####[facility] ABS IMM GRANS 0.0 10*3/uL Normal 0.0-0.2 [facility] Comment on above: Performed By: #### 5 0103 ####[facility] Basophils Auto #/vol (Bld) 0.9 % Normal 0.0-1.0 [facility] Comment on above: Performed By: #### 5 0103 ####[facility] Eosinophils 0.3 10*3/uL Normal 0.0-0.5 The [facility] Comment on above: Performed By: #### 5 0103 ####[facility] Eosinophils/100 leukocytes 3.4 % Normal 0.0-6.0 The [facility] Comment on above: Performed By: #### 5 0103 ####[facility] Erythrocyte distribution width Auto Ratio (RBC) 14.2 % Normal 11.5-15.0 [facility] Comment on above: Performed By: #### 5 0103 ####[facility] Erythrocytes (RBC) 5.79 10*6/uL High 4.20-5.70 [facility] Comment on above: Performed By: #### 5 0103 ####[facility] Erythrocytes (RBC) 0 % Normal 0-0 The [facility] Comment on above: Performed By: #### 5 0103 ####[facility] [place] [address], [facility] Hematocrit (HCT) 48.2 % Normal 39.0-50.0 The [facility] Comment on above: Performed By: #### 5 0103 ####[facility] [facility].[address] Hemoglobin mass conc (Bld) 16.0 g/dL Normal 13.0-17.0 The [facility] Comment on above: Performed By: #### 5 0103 ####[facility] [place] [address], [facility] IMMATURE GRANS 0.1 % Normal 0.0-1.0 The [facility] Comment on above: Performed By: #### 5 0103 ####[facility] Lymphocytes 2.0 10*3/uL Normal 1.2-4.0 The [facility] Comment on above: Performed By: #### 5 0103 ####[place] [address] [place] [address], [facility] Lymphocytes/100 leukocytes 26.6 % Normal 20.0-45.0 The [facility] Comment on above: Performed By: #### 5 0103 ####[facility] [place] [address], [facility] MCH 27.6 pg Normal 27.0-33.0 The [facility] Comment on above: Performed By: #### 5 0103 ####[facility] [facility].[address] MCHC mass conc (RBC) 33.2 g/dL Normal 32.0-35.0 The [facility] Comment on above: Performed By: #### 5 0103 ####[facility] [place] [address], [facility] MCV 83.2 fL Normal 82.0-98.0 [facility] Comment on above: Performed By: #### 5 0103 ####[facility] [place] [address], [facility] Monocytes 0.7 10*3/uL Normal 0.1-1.0 The [facility] Comment on above: Performed By: #### 5 0103 ####[facility] [place] [address], [facility] MONOS 9.7 % Normal 5.0-12.0 The [facility] Comment on above: Performed By: #### 5 0103 ####[facility] [facility] [place] [address], [facility] Neutrophils 4.4 10*3/uL Normal 1.6-7.6 The [facility] Comment on above: Performed By: #### 5 0103 ####[facility] [facility].[address] Neutrophils/100 leukocytes 59.3 % Normal 40.0-72.0 [facility] Comment on above: Performed By: #### 5 0103 ####[facility] [place] [address], [facility] PLAT CNT 238 10*3/uL Normal 150-400 The [facility] Comment on above: Performed By: #### 5 0103 ####[facility] [facility] [place] [address], [facility] WBC (Leukocytes) 7.4 10*3/uL Normal 4.0-10.6 [facility] Comment on above: Performed By: #### 5 0103 ####[facility] COMP METABOLIC PANELon 12-24 Alanine aminotransferase (ALT) 30 U/L Normal 7-52 The [facility] Comment on above: Performed By: #### 0 0121, [id number] ####[facility] [place] [address], [facility] Albumin 4.3 g/dL Normal 3.5-5.7 The [facility] Comment on above: Performed By: #### 0 0121, [id number] ####[facility] [place] [address], [facility] ALKALINE PHOSPH 67 IU/L Normal 34-104 The [facility] Comment on above: Performed By: #### 0 0121, 91389 ####[facility] Aspartate aminotransferase (AST) 23 U/L Normal 13-39 [facility] Comment on above: Performed By: #### 0 0121, 78891 ####[facility] Bilirubin (total) 0.3 mg/dL Normal 0.3-1.0 [facility] Comment on above: Performed By: #### 0 0121, 49255 ####[facility] [place] [address], [facility] Calcium 9.2 mg/dL Normal 8.6-10.3 [facility] Comment on above: Performed By: #### 0 0121, [id number] ####[facility] [place] [address], [facility] Chloride 109 mmol/L High 98-107 The [facility] Comment on above: Performed By: #### 0 0121, 49141 ####[facility] [place] [address], [facility] CO2 25 mmol/L Normal 21-31 [facility] Comment on above: Performed By: #### 0 0121, [id number] ####[facility] [place] [address], [facility] Creatinine 0.94 mg/dL Normal 0.70-1.30 [facility] Comment on above: Performed By: #### 0 0121, 33699 ####[facility] [place] [address], [facility] eGFR (black) mL/min/{1.73_m2} Normal >60 The [facility] Comment on above: Performed By: #### 0 0121, [id number] ####[facility] [place] [address], [facility] eGFR (non-black) mL/min/{1.73_m2} Normal >60 [facility] Comment on above: Performed By: #### 0 0121, 01611 ####[facility] [place] [address], [facility] Glucose mass conc 100 mg/dL Normal 70-100 [facility] Comment on above: Performed By: #### 0 0121, 19658 ####[facility] [place] [address], [facility] Potassium molar conc 4.2 mmol/L Normal 3.5-5.1 [facility] Comment on above: Performed By: #### 0 0121, 87929 ####[facility] [place] [address], [facility] Protein 7.0 g/dL Normal 6.0-8.3 [facility] Comment on above: Performed By: #### 0 0121, 33254 ####[facility] [place] [address], [facility] Sodium 140 mmol/L Normal 136-145 [facility] Comment on above: Performed By: #### 0 0121, 86868 ####[facility] [place] [address], [facility] Urea nitrogen 18 mg/dL Normal 7-25 [facility] Comment on above: Performed By: #### 0 0121, 23271 ####[facility] LIPID PROFILEon 12-24-2017 Cholesterol 120 mg/dL Normal 120-200 [facility] Comment on above: Result Comment: CHOL ESTEROL REFERENCE RANGE:20 YEARS AND OLDER CARDIOVASCULAR RISKLess than 200 mg/dl Low [id number] to 239 mg/dl Borderline [id number] mg/dl and greater High Risk Performed By: #### 0 0121, 24732 ####[facility] Cholesterol to HDL Ratio 3.8 {ratio} Normal .0-4.5 [facility] Comment on above: Performed By: #### 0 0121, 74654 ####[facility] HDL Cholesterol 32 mg/dL Normal 23-92 [facility] Comment on above: Result Comment: Slig ht variation in normal range could be due to gender and/or age.HDL CHOLESTEROL REFERENCE RANGE:20 years and older Cardiovascular Risk> or =60 mg/dL [id number] TO 59 mg/dL Low Risk<40 mg/dL High Risk Performed By: #### 0 0121, 21652 ####[facility] LDL Cholesterol 65 mg/dL Normal 0-130 [facility] Comment on above: Result Comment: LDL IS A CALCULATIONLDL IS ONLY VALID IF THE TRIG IS LESS THAN 400. Performed By: #### 0 0121, 58197 ####[facility] NON-HDL CHOLESTEROL 88 mg/dL Normal [facility] Comment on above: Performed By: #### 0 0121, 56271 ####[facility] [facility].[address] Triglyceride 113 mg/dL Normal 40-149 The [facility] Comment on above: Result Comment: TRIG LYCERIDE REFERENCE RANGE:20 YEARS AND OLDER CARDIOVASCULAR RISKLESS THAN 150 mg/dl LOW [id number] TO 199 mg/dl BORDERLINE [id number] mg/dl AND GREATER HIGH RISK Performed By: #### 0 0121, 72452 ####[facility] VLDL CHOL 23 mg/dL Normal 0-40 [facility] Comment on above: Performed By: #### 0 0121, 52710 ####[facility] Vital Signs Date Time Vital Sign Value Performing Clinician Valentin rose 10-07-2024 08:15-0500 Body mass index (BMI) [Ratio] 30.42 kg/m2 Chayo Santa [employer] Work Phone: [facility] 10-07-2024 08:15-0500 Body weight 93.44 kg Chayo Santa [employer] Work Phone: [facility] 10-07-2024 08:15-0500 Diastolic blood pressure 92 mm[Hg] Chayo Santa [employer] Work Phone: [facility] 10-07-2024 08:15-0500 Heart rate 94 /min Chayo Santa [employer] Work Phone: [facility] 10-07-2024 08:15-0500 SaO2% (BldA) [Mass fraction] 97 % Chayo Santa [employer] Work Phone: [facility] 10-07-2024 08:15-0500 Systolic blood pressure 154 mm[Hg] Chayo Santa [employer] Work Phone: [facility] 10-05-2024 08:47-0500 Body height 175.3 cm Abbe Gay MD Work Phone: [facility] 10-05-2024 08:47-0500 Body mass index (BMI) [Ratio] 31.31 kg/m2 Abbe Gay MD Work Phone: [facility] 10-05-2024 08:47-0500 Body weight 96.16 kg Abbe Gay MD Work Phone: [facility] 10-05-2024 08:47-0500 Diastolic blood pressure 80 mm[Hg] Abbe Gay MD Work Phone: [facility] 10-05-2024 08:47-0500 Heart rate 65 /min Abbe Gay MD Work Phone: [facility] [facility] 10-05-2024 08:47-0500 SaO2% (BldA) [Mass fraction] 99 % Abbe Gay MD Work Phone: [facility] 10-05-2024 08:47-0500 Systolic blood pressure 136 mm[Hg] Abbe Gay MD Work Phone: [facility] 09-07-2024 09:13-0400 Body height 172.7 cm Christopher Jeny DO Work Phone: [facility] 09-07-2024 09:13-0400 Body mass index (BMI) [Ratio] 32.02 kg/m2 Christopher Jeny DO Work Phone: [facility] 09-07-2024 09:13-0400 Body weight 95.53 kg Christopher Jeny DO Work Phone: [facility] 09-07-2024 09:13-0400 Diastolic blood pressure 121 mm[Hg] Christopher Jeny DO Work Phone: [facility] 09-07-2024 09:13-0400 Heart rate 89 /min Christopher Jeny DO Work Phone: [facility] 09-07-2024 09:13-0400 SaO2% (BldA) [Mass fraction] 96 % Christopher Jeny DO Work Phone: [facility] 09-07-2024 09:13-0400 Systolic blood pressure 172 mm[Hg] Keanu Fermin DO Work Phone: [facility] 09-02-2024 11:44-0400 Body height 175.3 cm Abbe Gay MD Work Phone: [facility] 09-02-2024 11:44-0400 Body mass index (BMI) [Ratio] 31.01 kg/m2 Abbe Gay MD Work Phone: [facility] 09-02-2024 11:44-0400 Body weight 95.25 kg Abbe Gay MD Work Phone: [facility] 09-02-2024 11:44-0400 Diastolic blood pressure 86 mm[Hg] Abbe Gay MD Work Phone: [facility] 09-02-2024 11:44-0400 Heart rate 76 /min Abbe Gay MD Work Phone: [facility] 09-02-2024 11:44-0400 SaO2% (BldA) [Mass fraction] 98 % Abbe Gay MD Work Phone: [facility] 09-02-2024 11:44-0400 Systolic blood pressure 132 mm[Hg] Abbe Gay MD Work Phone: [facility] Healthcare Encounters Encounter Date Encounter Type Care Provider Facility Start: 10-07-2024 End: 10-07-2024 Bamboo flowsheet Chayo Santa [employer] Work Phone: [facility] [address] Start: 10-07-2024 End: 10-07-2024 Bamboo flowsheet Chayo Santa [employer] Work Phone: [facility] [address] Start: 10-07-2024 End: 10-07-2024 Office outpatient visit 25 minutes Chayo Santa [employer] Work Phone: [facility] [address] Comment on above: Numbness and tinglin g of both feet (Primary Dx); Lumbosacral radiculopathy; Multilevel degenerative disc disease; Thoracic myelopathy Start: 10-07-2024 End: 10-07-2024 ambulatory CHAYO SANTA Not Available Start: 10-05-2024 End: 10-05-2024 Bamboo flowsheet Abbe Gay MD Work Phone: [facility] Start: 10-05-2024 End: 10-05-2024 Bamboo flowsheet Abbe Gay MD Work Phone: [facility] Start: 10-05-2024 End: 10-05-2024 Office outpatient visit 15 minutes Abbe Gay MD Work Phone: [facility] Comment on above: Essential hypertensi on (CMS/HCC) (Primary Dx); PAF (paroxysmal atrial fibrillation) (CMS/HCC); Atherosclerotic heart disease of [place] coronary artery with other forms of angina pectoris (CMS/HCC) Start: 10-05-2024 End: 10-05-2024 ambulatory ABBE GAY Not Available Start: 09-10-2024 End: 09-10-2024 Bamboo flowsheet Keanu Fermin DO Work Phone: [facility] Start: 09-10-2024 End: 09-10-2024 Bamboo flowsheet Luisopher Jeny DO Work Phone: [facility] Start: 09-10-2024 End: 09-10-2024 Patient encounter procedure Keanu Fermin DO Work Phone: [facility] Comment on above: Lumbosacral radiculo hod[place] (Primary Dx); Numbness and tingling of both feet Start: 09-10-2024 End: 09-10-2024 ambulatory KEANU FERMIN Not Available Start: 09-07-2024 End: 09-07-2024 Office outpatient new 45 minutes Keanu Fermin DO Work Phone: [facility] Comment on above: Thoracic myelopathy (Primary Dx); Multilevel degenerative disc disease; Numbness and tingling of both feet Start: 09-07-2024 End: 09-07-2024 ambulatory KEANU FERMIN Not Available Start: 09-02-2024 End: 09-02-2024 Bamboo flowsheet Abbe Gay MD Work Phone: [facility] Start: 09-02-2024 End: 09-02-2024 Bamboo flowsheet Abbe Gay MD Work Phone: [facility] Start: 09-02-2024 End: 09-02-2024 Office outpatient visit 25 minutes Abbe Gay MD Work Phone: [facility] Comment on above: Thoracic spondylosis with myelopathy (Primary Dx); Numbness and tingling of both feet Start: 09-02-2024 End: 09-02-2024 ambulatory ABBE GAY Not Available Start: 08-25-2024 End: 08-25-2024 ambulatory [facility] Start: 08-10-2024 End: 08-10-2024 Office outpatient visit 10 minutes Amber Shelby [employer] Work Phone: [facility] Comment on above: Status post left kne e replacement (Primary Dx); Status post right knee replacement Start: 08-10-2024 End: 08-10-2024 ambulatory AMBER SHELBY Not Available Start: 07-07-2024 End: 07-07-2024 ambulatory [facility] Start: 04-02-2024 End: 04-02-2024 ambulatory TROY FITZGERALD Not Available Start: 02-26-2024 End: 02-26-2024 ambulatory ABBE GAY Not Available Start: 02-12-2024 End: 02-12-2024 ambulatory ABBE GAY Not Available Start: 01-22-2024 End: 01-22-2024 ambulatory ABBE GAY Not Available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 pectoris ([facility] Heart block Hyperlipidemia ([facility]) Hypertension ([facility]) Osteoarthritis of right knee Tinnitus Past Surgical History: Procedure Laterality Date CARDIAC PACEMAKER PLACEMENT 10/28/2015 dr milagro wilkes CERVICAL FUSION 12/08/2013 CORONARY ANGIOPLASTY WITH STENT PLACEMENT 04/20/2016 dr garcia LAMINECTOMY 12/31/2019 T9-11 and L4-S1 Decompressive Laminectomies LUMBAR FUSION 12/31/2019 T9-T11, L5-S1, dr richmond OTHER SURGICAL HISTORY Discectomy, RT IF fused TOTAL KNEE ARTHROPLASTY Right 04/03/2017 Dr. Hendricks TOTAL KNEE ARTHROPLASTY Left 08/14/2017 Dr. Hendricks WRIST SURGERY Right Family History Problem Relation Name Age of Onset Heart disease Mother Hypertension Mother Heart disease Father Heart attack Father Social History Tobacco Use Smoking status: Former Current packs/day: 0.00 Types: Cigarettes Quit date: 1970 Years since quittin.8 Smokeless tobacco: Never Substance Use Topics Alcohol use: Not Currently Allergies: Patient has no known allergies. Vitals: 09/07/24 0913 BP: (!) 172/121 Pulse: 89 SpO2: 96% Body mass index is 32.02 kg/m . weight: 210 lb 9.6 oz Neurologic exam: Mental status: Awake, alert to person, place and time. Recent and remote memory are intact. Language is fluent without aphasia. Attention and concentration are normal. Fund of knowledge is appropriate for level of education. Cranial nerves: CN II: Visual acuity is normal. Visual de la cruz full to confrontation. CN III, IV, : pupils equal round and reactive to light. Extraocular movements intact. No ptosis present. CN V: Facial sensation is normal. CN VII: Full and symmetric facial movement. CN VIII: Hearing is normal to finger rub bilaterally: CN IX and X: Palate elevates symmetrically. CN XI: Shoulder shrug is normal bilaterally. CN XII: Tongue is midline without atrophy or fasciculation. Motor: RUE Strength deltoid, , biceps , triceps , wrist extensors , wrist flexor , fuel cell designer strength 5/5. LUE Strength deltoid , biceps , triceps , wrist extensors , wrist flexor , fuel cell designer strength 5/5. RLE Strength illopsoas, quadriceps, is 5/5. There is 0/5 for strength of the tibialis anterior indicating drop foot. LLE Strength illopsoas, quadriceps, tibialis anterior, and gastrocnemius strength 5/5. Normal tone x4 extremities. Bulk is normal. Bulk is normal. Sensory: Sensation is intact to light touch throughout Four extremities. Reflexes: RUE biceps reflex 0 brachioradialis reflex 0 . LUE biceps reflex 0 brachioradialis reflex 0 . RLE knee reflex 0 . LLE knee reflex 0 . Barron's sign negative. Coordination: [id number] testing and rapid alternating movements are normal Gait: Patient ambulates with a cane Review and summary of old records: TSH with reflex to free T4 on 02/27/2024: Normal Comprehensive metabolic panel on 02/26/24: Normal MRI of the cervical spine on 10/28/2019: Status post C4-C7 anterior and interbody fusion. Mild central canal stenosis at C3/4 and C7-T1. Bilateral foraminal narrowing throughout the cervical spine. MRI of the thoracic spine on 10/28/2019: Severe central canal stenosis and cord compression at T10/11. Moderate to severe canal stenosis and borderline compression at T9/10. Moderate stenosis at T8/9. L1 vertebral body fracture. Disc space narrowing and Disc bulging throughout. I have reviewed neurosurgery postop follow up with Dr. Sullivan on 01/29/2020. The patient had a T9-11 and L5-S1 decompression. Assessment/Plan Diagnoses and all orders for this visit: Thoracic myelopathy Multilevel degenerative disc disease Numbness and tingling of both feet It is my impression that the patient has a longstanding history of degenerative disc disease throughout his spine. He has evidence of previous fusion from C4-C7, surgery also occurred in 2019 for thoracic myelopathy at T9-T11 and for decompression at L5 and S1. The patient presents today with similar complaints of lower extremity numbness. However, today's presentation seems to be more distal and radiating upward in more of a polyneuropathy type picture. The patient has no history of diabetes or known history of neuropathy. Certainly the spinal disease may be contributing to symptoms. Further evaluation would help determine etiology. The patient has deep last reflexes on exam and drop foot on the right. The drop foot is very longstanding. Plan: EMG of the bilateral lower extremities to assess for pathology as above and determine type and severity I do suggest that the patient have follow up with the neurosurgical clinic based on the extensive previous surgeries there and any further opinions they may have in relation to surgical care. The patient's reports note gabapentin 800 mg and this appears to be taken approximately 1 time per day. I am okay with continuation of this. Further pain control may be best accomplished with a pain management approach given the extent of the patient's disease. Patient has a substantially elevated blood pressure during today's visit. I did discuss this with him and asked him to follow up closely with his primary care team in regards to this finding as this can lead to multiple life-threatening conditions. He understands and will do this. Pt has been fully educated on their diagnosis, treatment options, follow up plan, and return instructions documented in this encounter [facility] 09-02-2024 History of Present illness Narrative Images from the original note were not included. Subjective Patient ID: Iraj Valentine is a 74 y.o. male who presents for neuropathy. Pt has numbness/tingling in bilateral feet -ongoing issue Taking all meds as directed Current Outpatient Medications on File Prior to Visit Medication Sig Dispense Refill apixaban (Eliquis) 5 MG tablet Take 1 tablet (5 mg) by mouth in the morning and 1 tablet (5 mg) before bedtime. 60 tablet 11 ASPIRIN 81 PO atorvastatin (Lipitor) 80 MG tablet Take 80 mg by mouth 1 (one) time each day at the same time. carvedilol (Coreg) 25 MG tablet Take 25 mg by mouth in the morning and 25 mg in the evening. Take with meals. coenzyme Q-10 100 MG capsule Take 1 capsule by mouth 1 (one) time each day at the same time. isosorbide mononitrate ER (Imdur) 60 MG 24 hr tablet Take 60 mg by mouth 1 (one) time each day at the same time. lisinopril 10 MG tablet metoprolol succinate XL (Toprol-XL) 50 MG 24 hr tablet Take 50 mg by mouth in the morning. [DISCONTINUED] cyclobenzaprine (Flexeril) 10 MG tablet Take 1 tablet (10 mg) by mouth at bedtime 30 tablet 2 gabapentin (Neurontin) 800 MG tablet Take 800 mg by mouth Daily [DISCONTINUED] Gabapentin, Once-Daily, 900 MG tablet Take 900 mg by mouth at bedtime 60 tablet 0 No current facility-administered medications on file prior to visit. I have reviewed and reconciled the history and medication list with the patient today. No Known Allergies Social History Tobacco Use Smoking status: Former Current packs/day: 0.00 Types: Cigarettes Quit date: 1970 Years since quittin.8 Smokeless tobacco: Never Vaping Use Vaping status: Never Used Substance Use Topics Alcohol use: Not Currently Drug use: Never Family History Problem Relation Name Age of Onset Heart disease Mother Hypertension Mother Heart disease Father Heart attack Father Past Medical History: Diagnosis Date Coronary artery disease of [place] artery of [place] heart with stable angina pectoris (CMS/HCC) Heart block Hyperlipidemia (CMS/HCC) Hypertension (CMS/HCC) Osteoarthritis of right knee Tinnitus Past Surgical History: Procedure Laterality Date CARDIAC PACEMAKER PLACEMENT 10/28/2015 dr milagro wilkes CERVICAL FUSION 12/08/2013 CORONARY ANGIOPLASTY WITH STENT PLACEMENT 04/20/2016 dr garcia LAMINECTOMY 12/31/2019 T9-11 and L4-S1 Decompressive Laminectomies LUMBAR FUSION 12/31/2019 T9-T11, L5-S1, dr richmond OTHER SURGICAL HISTORY Discectomy, RT IF fused TOTAL KNEE ARTHROPLASTY Right 04/03/2017 Dr. Hendricks TOTAL KNEE ARTHROPLASTY Left 08/14/2017 Dr. Hendricks WRIST SURGERY Right Visit Vitals BP 132/86 Pulse 76 Ht 5' 9 Wt 210 lb SpO2 98% BMI 31.01 kg/m Smoking Status Former BSA 2.15 m Review of Systems Objective Physical Exam Constitutional: General: He is not in acute distress. Appearance: He is obese. He is not ill-appearing. HENT: Head: Normocephalic. Right Ear: Tympanic membrane and ear canal normal. Left Ear: Tympanic membrane and ear canal normal. Nose: Nose normal. Mouth/Throat: Mouth: Mucous membranes are moist. Pharynx: No posterior oropharyngeal erythema. Eyes: Extraocular Movements: Extraocular movements intact. Conjunctiva/sclera: Conjunctivae normal. Pupils: Pupils are equal, round, and reactive to light. Neck: Vascular: No carotid bruit. Cardiovascular: Rate and Rhythm: Normal rate. Rhythm irregular. Heart sounds: Normal heart sounds. No murmur heard. Pulmonary: Effort: Pulmonary effort is normal. Breath sounds: Normal breath sounds. No wheezing, rhonchi or rales. Abdominal: General: Bowel sounds are normal. Tenderness: There is no abdominal tenderness. Musculoskeletal: General: No swelling. Cervical back: No tenderness. Right lower leg: No edema. Left lower leg: No edema. Comments: Brace in place on right lower leg. Lymphadenopathy: Cervical: No cervical adenopathy. Skin: General: Skin is warm and dry. Neurological: Mental Status: He is alert and oriented to person, place, and time. Motor: Weakness present. Coordination: Coordination abnormal. Gait: Gait abnormal. Deep Tendon Reflexes: Reflexes abnormal. Comments: Uses straight cane for ambulation Psychiatric: Mood and Affect: Mood normal. Thought Content: Thought content normal. Judgment: Judgment normal. Assessment/Plan Diagnoses and all orders for this visit: Thoracic spondylosis with myelopathy Numbness and tingling of both feet - Ambulatory referral to Neurology; Future - He states this has been going on about a year , but I suspect much longer than that. Refer for work up as indicated and suggestions on prognosis and therapy. Follow up in about 6 months (around 03/03/2025) for Routine F/U. documented in this encounter [facility] 08-25-2024 Note Pt is here for a one year follow up. Pt denies sob, chest pain, and palpatatiions. Review of Systems Musculoskeletal: Positive for arthritis, back pain and joint pain. All other systems reviewed and are negative. [facility] 08-25-2024 Note Cardiovascular Medic [facility] SUBJECTIVE Chief Complaint Patient presents with Coronary Artery Disease Hypertension Atrial Fibrillation Iraj Valentine is a 74 y.o. male here for [...] RCA 2016, AV block s/p PPM ([employer]) 08/25/2024 He is asking about neuropathy treatment - recommended he discuss further with his PCP. BP at home running 120s/80s. He has been feeling well. Denies c/o CP, dyspnea, orthopnea, PND, LE edema, dizziness/LH, palpitations, syncope. 05/07/2023 At his last visit with VASILIY Thomson, [...] headaches, neuro sx's. Prior HPI per Dr. Garcia 03/2016: Patient presented to [facility] with unstable angina and was transferred to [facility]. I performed cardiac cath and found [...] normal weight. HEN (more content not included)... [facility] 08-10-2024 History of Present illness Narrative Subjective Patient ID: Iraj Valentine is a 74 y.o. male. Left knee: 7 yrs S/P LT TKA (DOS 08/14/17) Denies pain, denies issues or concerns. Continues to be pleased with the outcome. Denies pain meds. Prior treatment(s) included TKA 08/14/17, xray noms 08/14/21, xrays noms 08/13/22, XR [facility] 08/12/23, XR [facility] 08/10/24 Right knee: 7.5 years s/p RT TKA, (DOS 04/03/17) No issues or concerns. Denies pain. Pleased with the outcome. Wearing AFO on RT leg, walking with a cane. Prior treatment(s) included TKA 04/03/17, xr noms 08/14/21, xr noms 08/13/22, XR [facility] 08/12/23, XR [facility] 08/10/24 Objective Ortho Exam Knee Musculoskeletal Exam Gait Gait additional comments: Cane, drop foot on the right, AFO on the right leg Inspection Right Erythema: none Effusion: none Edema: none Ecchymosis: none Deformity: none Incision: well-healed Left Erythema: none Effusion: none Edema: none Ecchymosis: none Deformity: none Incision: well-healed Palpation Right Tenderness: none Left Tenderness: none Range of Motion Right Active extension: 0 Active flexion: 100 Left Active extension: 0 Active flexion: 120 Instability Right Varus stress grade: normal Valgus stress grade: normal Left Varus stress grade: normal Valgus stress grade: normal Instability additional comments: Firm endpoints bilaterally, no ligament laxity XR knee 1 or 2 views left Imaging Result: August 10, 2024 x-rays AP and lateral of the left knee demonstrate cemented knee replacement in good position alignment without signs of loosening fracture or failure. Impression: Stable appearance of left total knee replacement Cipriano Hendricks D.O. XR knee 1 or 2 views right Imaging Result: August 10 2004 x-rays AP weight-bearing bilateral knees and lateral of the right knee demonstrate cemented knee replacement on the right side in good position alignment without signs of loosening fracture or failure. Impression: Stable appearance right total knee replacement Cipriano Hendricks DDawn Assessment/Plan Encounter Diagnoses: ICD-10-CM 1. Status post left knee replacement Z96.652 XR knee 1 or 2 views left 2. Status post right knee replacement Z96.651 XR knee 1 or 2 views right Activities as tolerated, f/U prn documented in this encounter [facility] Healthcare Evaluation note Diagnosis Thoracic spondylosis with myelopathy- Primary Spondylosis with myelopathy, thoracic region Numbness and tingling of both feet documented in this encounter [facility]* Diagnosis Thoracic myelopathy- Primary Multilevel degenerative disc disease Numbness and tingling of both feet documented in this encounter [facility]* Diagnosis Lumbosacral radiculopathy- Primary Thoracic or lumbosacral neuritis or radiculitis, unspecified Numbness and tingling of both feet documented in this encounter [facility] HealthcareEvaluation note* Diagnosis Essential hypertension (CMS/HCC)- Primary Unspecified essential hypertension PAF (paroxysmal atrial fibrillation) (CMS/HCC) Atrial fibrillation Atherosclerotic heart disease of [place] coronary artery with other forms of angina pectoris (CMS/HCC) documented in this encounter [facility]* Diagnosis Numbness and tingling of both feet- Primary Lumbosacral radiculopathy Thoracic or lumbosacral neuritis or radiculitis, unspecified Multilevel degenerative disc disease Thoracic myelopathy documented in this encounter [facility]* Diagnosis Status post left knee replacement- Primary Status post right knee replacement documented in this encounter [facility] (narrative)* Consultation (Routine) - Pending Review Specialty Diagnoses / Procedures Referred By Sammie darden Referred To Contact Neurology Diagnoses Numbness and tingling of both feet Procedures GA OFFICE/OUTPATIENT NEW HIGH MDM 60 MINUTES Abbe Gay MD [address] [facility] [address] [place] [address] [facility] [address] [place] [address] Referral ID Status Reason Start Date Expiration Date Visits Requested Visits Authorized [id number] Pending Review Specialty Services Required 09/02/2024 03/01/2025 1 1 [facility] Narrative* Consultation (Routine) - Closed Specialty Diagnoses / Procedures Referred By Sammie darden Referred To Contact Neurology Diagnoses Numbness and tingling of both feet Procedures GA OFFICE/OUTPATIENT NEW HIGH MDM 60 MINUTES Abbe Gay MD [address] [address] Phone: tel: fax: Keanu Fermin, [address] [place], [place] [id number] Phone: tel: fax: Referral ID Status Reason Start Date Expiration Date V isits Requested Visits Authorized [id number] Closed Specialty Services Required 09/02/2024 03/01/2025 1 1 [facility] Healthcare Summary Purpose Family History No Family History [...] and content) DATE CREATED AUTHOR 05/19/2018 [facility] DATE CREATED AUTHOR AUTHOR'S ORGANIZ ATION 03/30/2023 [facility] pital DATE CREATED AUTHOR AUTHOR'S ORGANIZ ATION 09/18/2024 [facility] DATE CREATED AUTHOR AUTHOR'S ORGANIZ ATION 10/09/2024 [facility] EPIC Care Teams (unrecognized sec tion and content) Town Manager Relationship Specialty Start Date End Date Abbe Gay MD [address] [place] [address] PCP - Devoted 11/25/22 Abbe Gay MD [address] [place] [address] PCP - General Internal Medicine 04/02/23 Town Manager Relationship Specialty Start Date End Date Abbe Gay MD [address] [place] [address] PCP - [facility]oted 11/25/22 Abbe Gay MD [address] [place] [address] PCP - General Internal Medicine 04/02/23 Town Manager Relationship Specialty Start Date End Date Abbe Gay MD [address] [place] [address] PCP - Devoted 11/25/22 Abbe Gay MD [address] [place] [address] PCP - General Internal Medicine 04/02/23 Town Manager Relationship Specialty Start Date End Date Abbe Gay MD [address] [place] [address] PCP - Devoted 11/25/22 Abbe Gay MD [address] [place] [address] PCP - General Internal Medicine 04/02/23 Town Manager Relationship Specialty Start Date End Date Abbe Gay MD [address] [place] [address] PCP - Devoted 11/25/22 Abbe Gay MD [address] [place] [address] PCP - General Internal Medicine 04/02/23 Town Manager Relationship Specialty Start Date End Date Abbe Gay MD [address] [place] [address] PCP - Devoted 11/25/22 Abbe Gay MD [address] [place] [address] PCP - General Internal Medicine 04/02/23 Town Manager Relationship Specialty Start Date End Date Abbe Gay MD [address] [place] [address] PCP - Devoted 11/25/22 Abbe Gay MD [address] [place] [address] PCP - General Internal Medicine 04/02/23 Town Manager Relationship Specialty Start Date End Date Abbe Gay MD [address] [place] [address] PCP - Devoted 11/25/22 Abbe Gya MD [address] [place] [id number] PCP - General Internal Medicine 04/02/23 Town Manager Relationship Specialty Start Date End Date Abbe Gay MD [address] [place] [id number] PCP - Devoted 11/25/22 Abbe Gay MD [address] [place] [id number] PCP - General Internal Medicine 04/02/23 Town Manager Relationship Specialty Start Date End Date Abbe Gay MD [address] [place] [id number] PCP - Devoted 11/25/22 Abbe Gay MD [address] [place] [id number] PCP - General Internal Medicine 04/02/23 Reason for Visit (unrecogniz ed section and content) Reason Comments neuropathy Reason Comments Hypertension Reason Comments Numbness Tingling Reason Comments Follow-up FOR RECORDS PERTAINING TO PATIENTS WHO ARE [...] BE BASED ON THE PRIMARY CLINICAL RECORDS. [employer] [facility]. provides no warranty or guarantee of the accuracy or completeness of information in this document.
--- NOTE | 2025-02-18 19:40 | ED_ITS ---
HPI - Abdominal Pain General Chief Complaint: Abdominal Pain Stated Complaint: ABDOMINAL PAIN Time Seen by Provider: 02/18/25 19:33 Source: patient Mode of arrival: walk-in History of Present Illness HPI narrative: presents complaining of abdominal pain. Present since he woke up this AM . 8/10 pain. Did have small BM today. No nausea, vomiting or fever. No chest pain or shortness of breath. Denies past abdominal surgeries Related Data Home Medications ?Medication ?Instructions ?Recorded ?Confirmed apixaban 5 mg tablet (Eliquis) 5 mg PO BID 04/11/24 04/11/24 atorvastatin 80 mg tablet 80 mg PO DAILY 04/11/24 04/11/24 carvedilol 25 mg tablet 25 mg PO BID 04/11/24 04/11/24 gabapentin 800 mg tablet 800 mg PO DAILY 04/11/24 04/11/24 isosorbide mononitrate 60 mg 60 mg PO DAILY 04/11/24 04/11/24 tablet,extended release 24 hr lisinopril 10 mg tablet 10 mg PO DAILY 04/11/24 04/11/24 Allergies Allergy/AdvReac Type Severity Reaction Status Date / Time No Known Drug Allergies Allergy Verified 04/11/24 13:04 Review of Systems ROS Status of ROS 10 or more systems reviewed and unremark able except as noted in history and below PFSH PFSH Social History Little interest or pleasure in doing things: not at all Feeling down, depressed, or hopeless: not at all Exam Constitutional Vital Signs, click to edit/add: Last Vital Signs Temp 97.6 F 02/18/25 19:30 Pulse 60 02/18/25 20:00 Resp 13 02/18/25 20:00 BP 145/98 H 02/18/25 20:00 Pulse Ox 98 02/18/25 19:38 O2 Del Method Room Air 02/18/25 19:38 Common normals: no apparent distress, average body habitus, oriented x3, no limitations, healthy appearing, alert and well nourished [facility] Common normals: normocephalic and head/scalp atraumatic Eye Common normals: EOMs intact bilaterally Respiratory Common normals: normal respiratory effort, no retractions, no use of accessory muscles and clear to auscultation bilaterally Cardio Common normals: regular rate, regular rhythm, S1 normal heart sound and S2 normal heart sound GI Common normals: Normal to inspection, nondistended, normoactive bowel sounds present and soft to palpation Other: mild lower quad tenderness bilat. Extremity Other: splint RLE for drop foot Neuro Common normals: oriented x3, CN's II-XII intact bilaterally and moves all extremities Psych Appearance: grossly normal Course Vital Signs Vital signs: Vital Signs Temperature 97.6 F 02/18/25 19:30 Pulse Rate 89 02/18/25 19:30 Respiratory Rate 18 02/18/25 19:30 Blood Pressure 198/133 H 02/18/25 19:30 Pulse Oximetry 98 02/18/25 19:30 Oxygen Delivery Method Room Air 02/18/25 19:30 Temperature 97.6 F 02/18/25 19:30 Pulse Rate 60 02/18/25 20:00 Respiratory Rate 13 02/18/25 20:00 Blood Pressure 145/98 H 02/18/25 20:00 Pulse Oximetry 98 02/18/25 19:38 Oxygen Delivery Method Room Air 02/18/25 19:38 MDM - Abdominal Pain MDM Narrative Medical decision making narrative: patient presents with nonspecific abdominal pain. Did not want any pain medication. Exam with minor lower quad tenderness. labs all WNL including UA and CT abd/pelvis without acute findings. Patient rested comfortably during his stay. Discharged home and advised to use tylenol prn and to follow up with his doctor Lab Data Labs: Lab Results 02/18/25 02/18/25 Range/Units 19:50 21:10 WBC 7.7 (4.0-11.0) 10^3/uL RBC 5.35 (4.70-6.10) 10^6/uL Hgb 16.1 (14.0-18.0) g/dL Hct 47.1 (42.0-54.0) % MCV 88.0 (80.0-94.0) fL MCH 30.1 (25.9-34.0) pg MCHC 34.2 (29.9-35.2) g/dL RDW 13.6 (11.0-15.0) % Plt Count 220 (150-450) 10^3/uL MPV 10.9 (9.5-13.5) fL Neut % (Auto) 67.3 (43.0-75.0) % Lymph % (Auto) 19.5 L (20.5-60.0) % Dukes % (Auto) 8.4 (1.7-12.0) % Eos % (Auto) 3.6 (0.9-7.0) % Baso % (Auto) 0.9 (0.2-2.0) % Neut # (Auto) 5.2 (1.4-6.5) 10^3/uL Lymph # (Auto) 1.5 (1.2-3.8) 10^3/uL Dukes # (Auto) 0.7 (0.3-0.8) 10^3/uL Eos # (Auto) 0.3 (0.0-0.7) 10^3/uL Baso # (Auto) 0.1 (0.0-0.1) 10^3/uL Abs Immat Gran (auto) 0.02 (0.00-0.03) 10^3/uL Imm/Tot Granulo (auto) 0.3 (0.0-0.5) % Sodium 141 (136-145) mmol/L Potassium 4.6 (3.5-5.1) mmol/L Chloride 105 (98-107) mmol/L Carbon Dioxide 28.2 (21.0-32.0) mmol/L Anion Gap 12.4 BUN 15.0 (7.0-18.0) mg/dL Creatinine 0.91 (0.70-1.30) mg/dL Est GFR ( Amer) >60 (>=60 mL/min/1.73m^2) Est GFR (Non-Af Amer) >60 (>=60 mL/min/1.73m^2) BUN/Creatinine Ratio 16.5 Glucose 104 (74-106) mg/dL Lactate 1.3 (0.4-2.0) mmol/L Calcium 9.0 (8.5-10.1) mg/dL Total Bilirubin 0.5 (0.2-1.0) mg/dL AST 15 (15-37) U/L ALT 21 (16-63) U/L Alkaline Phosphatase 72 (46-116) U/L Troponin I High Sens 12.1 (4.0-76.1) pg/mL Total Protein 7.0 (6.4-8.2) g/dL Albumin 4.0 (3.4-5.0) g/dL Globulin 3.0 g/dL Albumin/Globulin Ratio 1.3 Lipase 32.0 (16.0-77.0) U/L Urine Color Lt. yellow (YELLOW) Urine Clarity Clear (CLEAR) Urine pH 6.0 (5.0-9.0) Ur Specific Warren <=1.005 A (1.005-1.025) Urine Protein Negative (NEG/TRACE) mg/dL Urine Glucose (UA) Negative (NEGATIVE) mg/dL Urine Ketones Negative (NEGATIVE) mg/dL Urine Occult Blood Negative (NEGATIVE) Urine Nitrite Negative (NEGATIVE) Urine Bilirubin Negative (NEGATIVE) Urine Urobilinogen 0.2 (0.2-1.0) EU/dL Ur Leukocyte Esterase Negative (NEGATIVE) Urine RBC None seen (0-2) #/HPF Urine WBC 0-2 A (NONE SEEN) #/HPF Ur Squamous Epith Cells Rare (NONE/RARE) #/LPF Urine Crystals None seen (None Seen) #/HPF Urine Bacteria None seen (NONE SEEN) #/HPF Urine Casts None seen (NONE SEEN) #/LPF Urine Mucus None seen (NONE SEEN) Ur Culture Indicated? No Discharge Plan Discharge Chief Complaint: Abdominal Pain Clinical Impression: Abdominal pain Patient Disposition: Home, Self-Care Prescriptions / Home Meds: No Action Eliquis 5 mg tablet 5 mg PO BID atorvastatin 80 mg tablet 80 mg PO DAILY carvedilol 25 mg tablet 25 mg PO BID gabapentin 800 mg tablet 800 mg PO DAILY isosorbide mononitrate 60 mg tablet extended release 24 hr 60 mg PO DAILY lisinopril 10 mg tablet 10 mg PO DAILY Print Language: Slovenian Instructions: Abdominal Pain (ED) Additional Instructions: use tylenol for pain and follow up with your doctor for recheck Referrals: ERIK HELLER [Primary Care Provider] - 1 week
--- NOTE | 2025-02-18 19:43 | ECG_ITS ---
[facility] Test Date: 2025-02-18 Pat Name: MARILYNN YANG Department: Room: - Gender: Male Cook Night: : 1950 Requested By: [id number] Order Number: [id number] Reading MD: SARA CHOUDHURY M.D. Measurements Intervals [place] Rate: 60 P: 10 ID: [id number] QRS: -47 QRSD: 88 T: 1 QT: 416 QTc: 416 Interpretive Statements Electronic atrial pacemaker 2630 Left anterior fascicular block 3114 Cannot rule out anterior myocardial infarction, age undetermined 8102 Low QRS voltage in chest leads 9150 abnormal ECG Compared to ECG 03/31/2017 02:05:34 Left anterior fascicular block now present Left ventricular hypertrophy no longer present Electronically Signed On 02-19-2025 19:22:46 EDT by SARA CHOUDHURY M.D.
[2025-02-18 20:08] LABS: Basophils Absolute Auto 0.1 10^3/uL (0.0-0.1); Basophils Percent Auto 0.9 % (0.2-2.0); Eosinophils Absolute Auto 0.3 10^3/uL (0.0-0.7); Eosinophils Percent Auto 3.6 % (0.9-7.0); Hematocrit 47.1 % (42.0-54.0); Hemoglobin 16.1 g/dL (14.0-18.0); Immature Granulocytes Abs Auto 0.02 10^3/uL (0.00-0.03); Immature Granulocytes Pct Auto 0.3 % (0.0-0.5); Lymphocytes Absolute Auto 1.5 10^3/uL (1.2-3.8); Lymphocytes Percent Auto 19.5 % (20.5-60.0); Mean Corpuscular HGB Conc 34.2 g/dL (29.9-35.2); Mean Corpuscular Hemoglobin 30.1 pg (25.9-34.0); Mean Platelet Volume 10.9 fL (9.5-13.5); Monocytes Absolute Auto 0.7 10^3/uL (0.3-0.8); Monocytes Percent Auto 8.4 % (1.7-12.0); Neutrophils Absolute Auto 5.2 10^3/uL (1.4-6.5); Neutrophils Percent Auto 67.3 % (43.0-75.0); Platelet Count 220 10^3/uL (150-450); Red Blood Count 5.35 10^6/uL (4.70-6.10); Red Cell Distribution Width 13.6 % (11.0-15.0); White Blood Count 7.7 10^3/uL (4.0-11.0)
[2025-02-18 20:26] LABS: Alanine Aminotransferase 21 U/L (16-63); Albumin Globulin Ratio 1.3; Alkaline Phosphatase 72 U/L (46-116); Anion Gap 12.4; Aspartate Amino Transferase 15 U/L (15-37); BUN Creatinine Ratio 16.5; Bilirubin Total 0.5 mg/dL (0.2-1.0); Carbon Dioxide 28.2 mmol/L (21.0-32.0); Chloride 105 mmol/L (98-107); Estimated GFR (African America >60 (>=60 mL/min/1.73m^2); Estimated GFR (Non-African Ame >60 (>=60 mL/min/1.73m^2); Glucose 104 mg/dL (74-106); Lactate/Lactic Acid 1.3 mmol/L (0.4-2.0); Potassium 4.6 mmol/L (3.5-5.1); Sodium 141 mmol/L (136-145); Troponin I High Sensitivity 12.1 pg/mL (4.0-76.1)
[2025-02-18 21:20] LABS: Bilirubin Urine NEGATIVE (NEGATIVE); Blood Urine NEGATIVE (NEGATIVE); Clarity Urine CLEAR (CLEAR); Color Urine LT. YELLOW (YELLOW); Glucose Urine UA NEGATIVE (NEGATIVE); Ketones Urine NEGATIVE (NEGATIVE); Leukocyte Esterase Urine NEGATIVE (NEGATIVE); Nitrite Urine NEGATIVE (NEGATIVE); Protein Urine NEGATIVE (NEG/TRACE); Specific Gravity Urine <=1.005 (1.005-1.025); Urobilinogen Urine 0.2 EU/dL (0.2-1.0)
[2025-02-18 21:24] LABS: RBC Urine NONE SEEN #/HPF (0-2); WBC Urine 0-2 #/HPF (NONE SEEN)
[2025-02-18 21:25] LABS: Bacteria Urine NONE SEEN #/HPF (NONE SEEN); Cast Seen? NONE SEEN #/LPF (NONE SEEN); Crystals Seen? None Seen #/HPF (None Seen); Mucus Urine NONE SEEN (NONE SEEN); Squamous Epithelial Cell Urine RARE #/LPF (NONE/RARE); Urine Culture Indicated NO
--- NOTE | 2025-02-18 22:45 | PC.NURSE ---
i gave this patient verbal and written discharge orders and this patient voices yes to understanding these orders. at time of discharge orders this patient voices no concerns and shows no signs of distress
== END 2025-02-18 22:47 | disposition home or self-care (01) ==
PROVIDERS: Emergency Provider Internal Medicine; PCP Internal Medicine
DX: R10.9 Unspecified abdominal pain (principal); K40.20 Bilateral inguinal hernia, without obstruction or gangrene, not specified as recurrent; M21.371 Foot drop, right foot
CPT/HCPCS: 36415; 74177; 80053; 81001; 83605; 83690; 84484; 85025; 93005; 99285; Q9967